=== PATIENT | male | born 1940 | race Caucasian/White ===

== ENCOUNTER 2023-03-28 18:20 | Emergency (ER) | payer OTHER, SELFPAY ==
[2023-03-28 18:28] VITALS: BP 152/73
[2023-03-28 20:07] VITALS: BMI 28.8
[2023-03-28 20:08] VITALS: BP 170/65
[2023-03-28 21:20] VITALS: BP 162/75
--- NOTE | 2023-03-28 21:21 | ED.GENMED ---
History of Present Illness
General
Chief Complaint: Head Injury
Source: patient
Exam Limitations: none
Time Seen by Provider: 03/28/23 20:37
Nursing documentation reviewed up to this point in time: agreed with
Travel History
Have you had any contact with someone who has COVID-19?: No
Do you have any symptoms of coronavirus? Fever > 100 degrees, chills, cough, shortness of breath, sore throat, loss of taste or smell, muscle aches, or headache?: No
History of Present Illness
History of Present Illness:
Patient states he lost his footing and fell. PMH Polio, weakness LLE. Hit left side of head on furniture. No LOC. Able to get self up. States he is taking plavix. Brought to ED by vijaya for eval.
Past History
Past History
ED Past Medical History: CAD, GERD, Hypercholesterolemia, NIDDM and Other (Polio)
ED Past Surgical History: Cardiac and Orthopedic
Social History
Personal:
Review of Systems
Review of Systems
Allergies reviewed?: Yes
All Other Systems: ROS reviewed and negative except as documented in HPI and ROS
Constitutional: Reports no symptoms
EENT: Reports no symptoms
Respiratory: Reports no symptoms
Cardiac: Reports no symptoms
ABD/GI: Reports no symptoms
: Reports no symptoms
Musculoskeletal: Reports no symptoms
Skin: Reports other (contusion left parietal scalp)
Neurological: Reports no symptoms
Psychiatric: Reports no symptoms
Phy Exam
General Physical Exam
General Presentation: well appearing and no apparent distress
General age: appears stated age
General Skin: warm and dry
General Habitus: normal
General Mental: alert
Neurological Exam
Neurological Exam: alert, oriented x3, no motor deficits, no sensory deficits and speech normal
[place] Coma Scale
Eye Opening: Spontaneous
Verbal Response: Oriented
Motor Response: Obeys Commands
GCS Total Score: 15
Musculoskeletal Exam
Musculoskeletal Exam: full ROM and neuro vasc intact
Skin Exam
Skin Exam: normal color, warm/dry and no rash
Psychiatric Exam
Psychiatric Exam: normal mood/affect
Course
Orders/Labs/Results
Orders:
Orders
03/28/23 18:31
CT Head W/o Iv Contrast Urgent
Comment:
Reason For Exam: head injury, on Plavix
Vital Signs
Initial and Last Documented VS:
Initial Vital Signs
Temp Pulse Resp BP Pulse Ox
98.4 F 61 16 152/73 98
03/28/23 18:28 03/28/23 18:28 03/28/23 18:28 03/28/23 18:28 03/28/23 18:28
Last Documented Vital Signs
Temp Pulse Resp BP Pulse Ox
98.4 F 65 18 162/75 100
03/28/23 18:28 03/28/23 21:20 03/28/23 21:20 03/28/23 21:20 03/28/23 21:20
*Radiology
Radiology exam reviewed: radiology read reviewed
*Pulse Oximetry
Patient hypoxic: no
*Critical Care Note
Total Time (30-74mins, 75-104mins- exclusive of procedures): Not Applicable
ED Attending Note
-
Portions of this chart may have been created with voice recognition software.� Occasional wrong word or��sound alike� substitutions may have occurred due to the inherent limitations of voice recognition software.
Discharge Plan
Departure
Patient Disposition: Home (Routine Discharge)
Date of Disposition: 03/28/23
Time of Disposition: 21:19
Patient with high blood pressure during this ER visit?: No
Condition: Good
Covid-19: Not Applicable
Discharge Problem:
Head injury
Instructions: Head Injury in Adults (DC), Contusion (DC)
Activity Restrictions/Additional Instructions:
Follow up with your family doctor on Friday.
Interventions
Interventions:
*Risk Screen - Suicide Last Done: 03/28/23 20:05
*General Assessment Last Done: 03/28/23 18:28
*Neglect/Abuse Screening Last Done: 03/28/23 20:05
ED- Fall Risk Assessment Last Done: 03/28/23 20:05
*ED COVID-19 Vaccine History Last Done: 03/28/23 18:28
ED- Neurological Assessment Last Done: 03/28/23 20:05
ED-Skin Assessment Last Done: 03/28/23 20:05
== END 2023-03-28 21:35 | disposition home or self-care (01) ==
LOC: EMR 18:20
PROVIDERS: EMERGENCY PHYSICIAN Emergency Medicine
DX: S09.90XA Unspecified injury of head, initial encounter (principal); W19.XXXA Unspecified fall, initial encounter; I25.10 Atherosclerotic heart disease of native coronary artery without angina pectoris; K21.9 Gastro-esophageal reflux disease without esophagitis; E11.9 Type 2 diabetes mellitus without complications; E78.00 Pure hypercholesterolemia, unspecified; Z79.02 Long term (current) use of antithrombotics/antiplatelets
CPT/HCPCS: 99284; 70450

== ENCOUNTER → 2023-04-01 14:37 | Outpatient (REF) | payer OTHER, SELFPAY | LOC: HWRAD 14:37 | PROVIDERS: ATTENDING PHYSICIAN Family Medicine | DX: M25.531 Pain in right wrist (principal); W19.XXXD Unspecified fall, subsequent encounter | CPT/HCPCS: 73110 ==

== ENCOUNTER 2023-04-07 23:26 | Inpatient (IN) | payer OTHER, SELFPAY ==
[2023-04-07] VITALS (7 sets, daily range): BP systolic 123–174; BP diastolic 69–86; BMI 28.7
[2023-04-07 18:40] LABS: % Basophils 0.6 % (0-2); % Eosinophils 1.7 % (0-6); % Immature Granulocytes 0.6 % (0-0.5); % Lymphocytes 20.2 % (20.5-51.1); % Monocytes 11.1 % (1.7-9.3); % Neutrophils 65.8 % (42.2-75.2); Absolute Eosinophils 0.1 10^3/uL (0-0.7); Absolute Lymphocytes 1.1 10^3/uL (1.2-3.4); Absolute Monocytes 0.6 10^3/uL (0.1-0.6); Absolute Neutrophils 3.6 10^3/uL (1.4-6.5); Hematocrit 40.8 % (39.0-52.0); Hemoglobin 14.5 g/dL (13.0-18.0); Mean Corp Hgb Conc. 35.5 g/dL (33.0-37.0); Mean Corpuscular Hgb 34.4 pg (27.0-31.0); Mean Corpuscular Volume 96.9 fL (80.0-94.0); Mean Platelet Volume 10.2 fL (7.4-10.4); Nucleated Red Blood Cells % 0 % (-); Platelet Count 158 10^3/uL (130-400); Red Blood Cell Count 4.21 10^6/uL (4.70-6.10); Red Cell Dist. Width 12.9 % (11.5-14.5); White Blood Cell Count 5.4 10^3/uL (4.8-10.8)
[2023-04-07 19:02] LABS: ALT (SGPT) 22 U/L (0-50); AST (SGOT) 34 U/L (17-59); Albumin 4.1 g/dl (3.5-5.0); Alkaline Phosphatase 96 U/L (38-126); Blood Urea Nitrogen 17 mg/dl (9-20); Calcium 9.6 mg/dl (8.4-10.2); Carbon Dioxide 26 mmol/L (22-30); Chloride 98 mmol/L (98-107); Estimated Creatinine Clearance 59 ml/min; Glucose 140 mg/dl (70-99); Potassium 4.6 mmol/L (3.5-5.1); Sodium 135 mmol/L (135-145); Total Bilirubin 0.8 mg/dl (0.2-1.3); Total Protein 7.4 g/dl (6.3-8.2); eGFR > 60.00
[2023-04-07 19:03] LABS: Troponin I < 0.012 ng/ml
--- NOTE | 2023-04-07 19:31 | ED.GENMED ---
History of Present Illness
General
Chief Complaint: Chest Pain
Source: patient
Exam Limitations: none
Time Seen by Provider: 04/07/23 19:11
Nursing documentation reviewed up to this point in time: agreed with
Travel History
Have you had any contact with someone who has COVID-19?: Unable to Answer
Do you have any symptoms of coronavirus? Fever > 100 degrees, chills, cough, shortness of breath, sore throat, loss of taste or smell, muscle aches, or headache?: Unable to Answer
History of Present Illness
History of Present Illness:
Patient with history of coronary artery disease, including multiple cardiac stent placement, with most recent one in 2020, presents to ED secondary to sudden onset of chest pain around 5:30 PM while he was at home. Chest pain described as
'burning', radiating up to his chest, without any alleviating or exacerbating factors. Patient states that his symptoms are similar to what he has experienced in the past, when he required stent placements. After onset of symptoms, patient
proceeded to take full-strength aspirin 325 mg, as well as 2 tablets of nitroglycerin, with minimal relief in symptoms. At that time 911 was dispatched. In route to the hospital, patient was given 2 additional tablet of nitroglycerin, with gradual
improvement in symptoms. At the time of evaluation ED, patient states that he is only experiencing intermittent 'chest discomfort'. Denies recent illness. Denies associated diaphoresis, nausea, or shortness of breath. Denies recent travel or
surgery. Denies leg pain or swelling. Denies back pain. Patient was seen by his primary water regulator and valve repairer in January 2023, as follow-up to chest pain presentation in ED in November 2022. At that time, patient also received stress echocardiogram as an
outpatient. Medication adjustments were made during his follow-up with his water regulator and valve repairer.
Past History
Past History
ED Past Medical History: CAD, GERD, Hypercholesterolemia, NIDDM and Other (Polio)
ED Past Surgical History: Cardiac and Orthopedic
Social History
Personal:
Review of Systems
Review of Systems
Allergies reviewed?: Yes
All Other Systems: ROS reviewed and negative except as documented in HPI and ROS
Constitutional: Reports no symptoms
EENT: Reports no symptoms
Respiratory: Reports no symptoms; Denies trouble breathing
Cardiac: Reports chest pain; Denies diaphoresis
ABD/GI: Reports no symptoms; Denies nausea
: Reports no symptoms
Musculoskeletal: Reports no symptoms
Skin: Reports no symptoms
Neurological: Reports no symptoms; Denies dizzy
Phy Exam
Physical Exam
Physical Exam:
Physical Exam
General: no apparent distress, not acutely ill. afebrile.
Head: nc/at. eomi
Neck: supple. no meningeal signs.
Heart: s1/s2 regular rate and rhythm, systolic ejection murmur. equal radial pulses.
Lungs: no acute respiratory distress. clear bilaterally
Abdomen: normal bowel sounds. not tender.
Neuro: alert and oriented. no focal neurological deficits
Skin: no rash
Psychiatric: well kept. interactive and cooperative
Extremities: no edema. no calf tenderness.
Scores
Heart Score for Chest Pain Patients
STEMI patient?: No
History: Moderately Suspicious
ECG: Normal
Age: >/= 65 years
Risk Factors: >/= 3 Risk Factors or History of CAD
Troponin: </= Normal Limit
Heart Score for Chest Pain Patients: 5
Heart Score Risk: 20.3% MACE over next 6 weeks
Course
Orders/Labs/Results
Orders:
Orders
04/07/23 18:20
EKG [Electrocardiogram (*1)] Urgent
Reason for Study: Chest Pain
EKG- Treatment ONCE
04/07/23 18:22
Cardiac Monitoring- Treatment ONCE
IV Insert/Care/Rem.- Treatment PRN
O2 Therapy [RESP] Urgent
Titrate/Wean O2 to maintain O2 sat greater than (%): 90
Special Instructions: Maintain sats >/=90%
Pulse Ox/spot Check [RESP] Urgent
Quantity: 1
Special Instructions: ON ROOM AIR
04/07/23 18:27
Comprehensive Metabolic Panel Urgent
Troponin I Urgent
04/07/23 18:28
Complete Blood Count/With Diff Urgent
04/07/23 21:33
Troponin I Urgent
04/07/23 23:16
Admit/Transfer Patient As Directed
Co-Sign Provider:
Level of Care: Inpatient admission
Assign to:: Telemetry
Physician / Group: sury
Diagnosis: nstemi
Reason for Telemetry: Arrhythmia
Date to Stop Telemetry: 04/10/23
Time to Stop Telemetry: 11:00
Reason for Hospitalization: nstemi
Expected length of stay greater than two midnights?: Yes
ELOS- Estimated Length of Stay in days: 2
I certify the patient meets the requirements for IP care: Yes
Code Status As Directed
Resuscitation Status: Full Code
04/08/23 00:13
Colchicine 0.6 mg PO BID PRN
Cyanocobalamin [Vitamin B-12] 1,000 mcg PO Q48H
04/08/23 00:13
CARDIOLOGY CONSULT Routine
Consulting Provider: Jesenia Rivera
Was physician already notified: Yes
Activity As Directed
Activity Level: As Tolerated
Vital Signs As Directed
Frequency: Per unit guidelines
DX Deep Vein Thrombosis Video Routine
04/08/23 00:31
Troponin I Q6H
04/08/23 06:00
Complete Blood Count/With Diff IN AM
Comprehensive Metabolic Panel IN AM
04/08/23 06:13
Troponin I Q6H
04/08/23 08:00
Clopidogrel Bisulfate [Plavix] 75 mg PO DAILY
Heparin 5,000 units SC Q12
ISOSORBIDE MONOnitrate ER [Imdur (Extended Release)] 60 mg PO BID
Metoprolol Xl [Toprol Xl] 50 mg PO BID
Multivitamin [Theragran] 1 tablet PO BID
Ramipril [Altace] 2.5 mg PO DAILY
ascorbic acid (vitamin C) [Vitamin C] 2,000 mg PO DAILY
coenzyme Q10 [Co Q-10] 100 mg PO DAILY
glucos sul [id number] [Glucosamine Chondroitin] 2 cap PO DAILY
psyllium husk [Metamucil] 1.2 grams PO BID
ranolazine 1,000 mg PO BID
04/08/23 12:13
Troponin I Q6H
04/08/23 14:00
Pantoprazole [Protonix] 40 mg PO DAILY@1400
04/08/23 Dinner
NPO
Allow oral meds: Yes
Allow clear liquids: Sips of Clears
04/08/23 22:00
Aspirin Low Dose EC [Aspir Low (Enteric Coated)] 81 mg PO HS
Finasteride [Proscar] 5 mg PO HS
Rosuvastatin Calcium [Crestor] 20 mg PO HS
Tamsulosin [Flomax] 0.8 mg PO HS
ascorbic acid (vitamin C) [Vitamin C] 1,000 mg PO HS
04/10/23 11:00
DC Protocol for Telemetry ONCE
Abnormal Lab Results
04/07/23 04/07/23
18:27 18:28
RBC 4.21 L 10^6/uL
(4.70-6.10)
MCV 96.9 H fL
(80.0-94.0)
MCH 34.4 H pg
(27.0-31.0)
Absolute Lymphs (auto) 1.1 L 10^3/uL
(1.2-3.4)
Immature Gran % 0.6 H %
(0-0.5)
Lymphocytes % 20.2 L %
(20.5-51.1)
Monocytes % 11.1 H %
(1.7-9.3)
Glucose 140 H mg/dl
(70-99)
04/07/23 18:28
04/07/23 18:27
Vital Signs
Initial and Last Documented VS:
Initial Vital Signs
Pulse Resp BP
66 22 174/86
04/07/23 18:23 04/07/23 18:23 04/07/23 18:23
Last Documented Vital Signs
Temp Pulse Resp BP Pulse Ox
97.9 F 56 16 148/71 97
04/07/23 18:32 04/08/23 00:00 04/08/23 00:00 04/08/23 00:00 04/08/23 00:00
MDM/Problems Addressed
MDM/Problems Addressed:
Patient remains chest pain-free during extended course of observation ED.
Repeat troponin: 0.019.
Discussed with Dr.Renee Rivera, cardiology. Recommends admission to hospitalist service. Does not recommend heparin protocol at this time.
*EKG
Interpreted by ED Provider?: Yes
EKG Intrepretation Date: 04/07/23
Heart Rate: 65
Rate: normal
Rhythm: sinus
[place]: normal axis
Interval: normal interval
QRS Pattern: normal QRS
*Critical Care Note
Total Time (30-74mins, 75-104mins- exclusive of procedures): Not Applicable
ED Attending Note
-
Portions of this chart may have been created with voice recognition software.� Occasional wrong word or��sound alike� substitutions may have occurred due to the inherent limitations of voice recognition software.
Discharge Plan
Departure
Patient Disposition: Admit
Date of Disposition: 04/07/23
Time of Disposition: 22:27
Admit to: Telemetry
Presentation/result/management discussed w/ accepting MD/DO: Hospitalist
Discharge Problem:
Chest pain
Interventions
Interventions:
*Risk Screen - Suicide Last Done: 04/07/23 18:33
*General Assessment Last Done: 04/07/23 18:33
*Neglect/Abuse Screening Last Done: 04/07/23 18:33
ED- Fall Risk Assessment Last Done: 04/07/23 18:34
*ED COVID-19 Vaccine History Last Done: 04/07/23 18:33
ED- Cardiac Assessment Last Done: 04/07/23 23:15
[2023-04-07 22:14] LABS: Troponin I 0.019 ng/ml
--- NOTE | 2023-04-07 23:20 | HPS.HSE ---
Family Physician
-
Family Physician: Dimple Myers
Chief Complaint
-
chest pain
History of Present Illness
82-year-old male with past medical history of CAD with stents, hypertension, gout, GERD, hypercholesteremia, polio with left foot paralysis, presenting with chest pain at 5:30 PM while at home. Pain described as burning radiating up to the chest
without alleviating or exacerbating factors. Symptoms similar to the past when he required stents. Afterwards patient took a full-strength aspirin and 2 tablets of nitroglycerin without much relief in symptoms. 911 was called. Patient was given
2 additional tablets of nitroglycerin with gradual improvement in symptoms. He denied diaphoresis, nausea or shortness of breath. Denied leg pain or swelling. Denies back pain.
Denies smoking history. Drinks alcohol occasionally.
Medical History
Past Medical History
Past Medical History: Reports Other ( CAD with stents, hypertension, gout, GERD, hypercholesteremia, polio with left foot paralysis)
Past Surgical History: Reports Cardiac (CABG )
Social History
Tobacco: Non-smoker
Alcohol: Occasional
Drug: None
Family History
Family History: Not pertinent
Allergies / Home Medications
Allergies reflects when Allergies were last updated in [employer].
Home Medications with original date entered in [employer]
Allergy/Medication List:
Allergies
Allergy/AdvReac Type Severity Reaction Status Date / Time
ticlopidine [From Ticlid] Allergy Rash Verified 03/28/23 18:31
Home Medications
ascorbic acid (vitamin C) 1,000 mg tablet (Vitamin C) 1,000 mg PO HS 04/07/23
ascorbic acid (vitamin C) 1,000 mg tablet (Vitamin C) 2,000 mg PO DAILY 04/07/23
aspirin 81 mg tablet,delayed release 81 mg PO HS 04/07/23
clopidogrel 75 mg tablet 75 mg PO DAILY 04/07/23
coenzyme Q10 100 mg capsule (Co Q-10) 100 mg PO DAILY 04/07/23
colchicine 0.6 mg tablet 0.6 mg PO BID PRN gout 04/07/23
cyanocobalamin (vitamin B-12) 1,000 mcg tablet (Vitamin B-12) 1,000 mcg PO Q48H 04/07/23
finasteride 5 mg tablet 5 mg PO HS 04/07/23
glucosamine sulf dipot chlr,msm,chond 550 mg-C 30 mg-brice 1 mg capsule (Glucosamine Chondroitin) 2 cap PO DAILY 04/07/23
isosorbide mononitrate 60 mg tablet,extended release 24 hr 60 mg PO BID 04/07/23
metoprolol succinate 50 mg tablet,extended release 24 hr 50 mg PO BID 04/07/23
multivitamin 1 tab PO BID 04/07/23
pantoprazole 40 mg tablet,delayed release 40 mg PO DAILY@1400 04/07/23
psyllium husk 0.4 gram capsule (Metamucil) 1.2 g PO BID 04/07/23
ramipril 2.5 mg capsule 2.5 mg PO DAILY 04/07/23
ranolazine 1,000 mg tablet,extended release,12 hr 1,000 mg PO BID 04/07/23
rosuvastatin 20 mg tablet 20 mg PO HS 04/07/23
tamsulosin 0.4 mg capsule 0.8 mg PO HS 04/07/23
Review of Systems
-
History Source: Patient
A 12 point ROS was completed and negative except as noted: Yes
Constitutional: Reports No Symptoms
EENT: Reports No Symptoms
Respiratory: Reports No Symptoms
Cardiac: Reports See HPI
Abdomen/GI: Reports No Symptoms
: Reports No Symptoms
Musculoskeletal: Reports No Symptoms
Skin: Reports No Symptoms
Neurological: Reports No Symptoms
Endocrine: Reports No Symptoms
Hematologic/Lymphatic: Reports No Symptoms
Psych: Reports No Symptoms
Physical Exam
Vital Signs
Vital Signs
Temp Pulse Resp BP Pulse Ox
97.9 F 57 13 152/72 96
04/07/23 18:32 04/07/23 23:00 04/07/23 23:00 04/07/23 23:00 04/07/23 23:00
Physical Exam
General: Well Developed, Well Nourished and No Apparent Distress
HEENT: NormoCephalic, Moist mucous membranes and Atraumatic
Respiratory: Clear
Cardiac: S1/S2 and Regular Rhythm; No Murmur or Rub
GI: Soft, Non Tender, Non Distended and Normal Bowel Sounds; No Organomegaly
Rectal: Deferred by Provider
Musculoskeletal: No Clubbing, No Cyanosis and No Edema
Skin: No Rash
Neuro: Nonfocal/grossly intact
Laboratory Results
-
04/07/23 18:28
04/07/23 18:27
Laboratory Results
Total Bilirubin 0.8 mg/dl (0.2-1.3) 04/07/23 18:27
AST 34 U/L (17-59) 04/07/23 18:27
ALT 22 U/L (0-50) 04/07/23 18:27
Alkaline Phosphatase 96 U/L (38-126) 04/07/23 18:27
Troponin I 0.019 ng/ml D 04/07/23 21:33
Data Reviewed
-
Lab Data: Labs Reviewed by me
Old Records: Reviewed
Impression/Plan
-
IMPRESSION:
PLAN:
# NSTEMI/unstable angina
# CAD status post CABG/prior stents most recently in 2020
-EKG shows normal sinus rhythm, no ischemic changes
-First troponin negative been 0.019
-Continue to trend troponins
-Continue aspirin, Plavix
-Continue isosorbide mononitrate
-Continue metoprolol
-Continue ranolazine
-Cardiology consulted
-N.p.o. for potential catheterization
Essential hypertension
-Continue ramipril
GERD
-Continue Protonix
Hypercholesterolemia
-Continue statin
Gout
-Continue colchicine
History of polio with left foot paralysis
BPH
-Continue finasteride
-Continue tamsulosin
Full code
DVT prophylaxis�heparin
N.p.o.
[2023-04-08] VITALS (15 sets, daily range): BP systolic 110–168; BP diastolic 59–89; PULSE 60–65; O2SAT 98; BMI 27.1
[2023-04-08 01:12] LABS: Troponin I 0.024 ng/ml
[2023-04-08] MEDS: FLOMAX 0.800000000000000044 MG PO ×2 (02:33→22:43)
[2023-04-08] MEDS: CRESTOR 20 MG PO ×2 (02:35→22:44)
[2023-04-08] MEDS: PROSCAR 5 MG PO ×2 (02:35→22:44)
[2023-04-08] MEDS: TOPROL XL 50 MG PO ×3 (02:36→20:22)
[2023-04-08] MEDS: RANEXA EXTENDED RELEASE 1000 MG PO ×3 (02:38→20:21)
[2023-04-08] MEDS: IMDUR (EXTENDED RELEASE) 60 MG PO ×3 (02:42→20:21)
[2023-04-08 06:18] LABS: % Basophils 0.8 % (0-2); % Eosinophils 1.6 % (0-6); % Immature Granulocytes 0.4 % (0-0.5); % Lymphocytes 17.5 % (20.5-51.1); % Monocytes 10.1 % (1.7-9.3); % Neutrophils 69.6 % (42.2-75.2); Absolute Eosinophils 0.1 10^3/uL (0-0.7); Absolute Lymphocytes 0.9 10^3/uL (1.2-3.4); Absolute Monocytes 0.5 10^3/uL (0.1-0.6); Absolute Neutrophils 3.6 10^3/uL (1.4-6.5); Hematocrit 36.5 % (39.0-52.0); Hemoglobin 12.9 g/dL (13.0-18.0); Mean Corp Hgb Conc. 35.3 g/dL (33.0-37.0); Mean Corpuscular Hgb 33.9 pg (27.0-31.0); Mean Corpuscular Volume 96.1 fL (80.0-94.0); Mean Platelet Volume 10.3 fL (7.4-10.4); Nucleated Red Blood Cells % 0 % (-); Platelet Count 151 10^3/uL (130-400); Red Cell Dist. Width 12.9 % (11.5-14.5); White Blood Cell Count 5.2 10^3/uL (4.8-10.8)
[2023-04-08 06:40] LABS: ALT (SGPT) 22 U/L (0-50); AST (SGOT) 33 U/L (17-59); Albumin 3.7 g/dl (3.5-5.0); Alkaline Phosphatase 101 U/L (38-126); Blood Urea Nitrogen 13 mg/dl (9-20); Carbon Dioxide 26 mmol/L (22-30); Chloride 104 mmol/L (98-107); Estimated Creatinine Clearance 67 ml/min; Glucose 118 mg/dl (70-99); Potassium 4.2 mmol/L (3.5-5.1); Sodium 133 mmol/L (135-145); Total Protein 6.6 g/dl (6.3-8.2); eGFR > 60.00
--- NOTE | 2023-04-08 06:44 | PTCARENOTE ---
Received pt from ED. AOx3. Pt transferred from stretcher to bed via nursing staff. Pt w/ left leg weakness from hx of polio. Oriented to unit. Report given to dayshift nurse.
[2023-04-08 06:50] LABS: Troponin I 0.016 ng/ml
--- NOTE | 2023-04-08 08:53 | CON.CAR ---
Addendum entered and electronically signed by Jimmie Rawls MD 04/08/23 11:57:
I saw and examined the patient.
The Metal Solderer's note was reviewed and I agree with the note.
Comment: Briefly, 82-year-old man past medical history of MV CAD s/p CABG () with subsequent PCI x10 at both [facility] as well [place]
He presents with chest discomfort which is somewhat atypical by his description but he associates as his chronic angina, has remained chest pain free today
Serial troponins here are within normal limits
EKG is not overtly ischemic
Recent stress testing and echo reviewed and case discussed with patient's primary senior ruby developer - plan is for up titration of his medical therapy
Will add amlodipine as additional anti-anginal and monitor for recurrence of symptoms
Continue aspirin/Plavix/high intensity statin
Stable cardiac status, we will arrange for outpatient follow-up
Original Note:
Consultation
Consultation Request
Date/Time Consultation Performed: 04/08/23
Requesting Provider: Dr. Cabrera
Performing Provider: Magdalean Hartman PA-C for Dr. Rawls
Reason for Consultation: CP
Medical History
-
Chief Complaint: CP
History of Present Illness:
Patient is an 82-year-old male with past medical history of CAD status post CABG in 1989 at [facility] with PRITCHARD to LAD and SVG to OM. Since then he has had multiple cardiac catheterizations resulting in stenting between [facility] and
[facility] with Dr. Smith. His most recent cardiac catheterization was 02/2020 resulting in stenting of his [place] LAD. He reports at 5 PM yesterday he was sitting in his chair doing sudoku and developed feeling of a heat flash from his
abdomen up into his chest, which is typically is 'tell' for angina. After a few minutes the pain was still present and he took 1 sublingual nitro. After 15 minutes he had no change in his pain and took aspirin and an additional nitro. The pain
persisted and he called 911. EMS gave him a third nitro and more aspirin. In the ER, he received a fourth sublingual nitro with some reduction in his discomfort. He is presently pain-free. He believes the pain lasted in total approximately 2
hours or so. He has no radiation of pain. He has not had any chest discomfort with completing his normal activities around the house recently. He has not required sublingual nitro at home recently until yesterday. EKG sinus bradycardia without
acute ST abnormalities. Troponin 0.019, 0.024, 0.016. Last ischemic evaluation was a stress test 11/2022 with medium area of mildly decreased uptake that is reversible and apical anterior wall and apex, small area of mildly decreased uptake that
is fixed in basal and mid inferolateral wall, EF 65%. Last echocardiogram 11/2022 with EF normal, mild MR, mild , mild TR. of note, patient tells me he has history of polio, and more recently his leg has been giving him significant issues due to
weakness. He had a fall 10 days ago where he hit his head resulting in an ER visit. He also fell on Friday. Reports this is a result of him tripping, and denies any preceding dizziness or lightheadedness.
PMH:
CAD
Status post CABG 1989 at [facility] with PRITCHARD to LAD and SVG to OM
Status post LAD stent in 2008 [facility]
Status post LAD stent 04/2013 [facility]
Status post SVG�OM stent 04/2016 [facility]
Status post laser atherectomy of proximal LAD with PCI x 2 06/2017 [facility]
Status post LAD stent 02/2020 [facility]
History of polio at age 2, with postpolio syndrome LLE
History of falls
DM2, diet controlled
Gout
GERD
BPH
Past Medical History
Past Medical History: Other (in HPI)
Social History
Tobacco: Non-Smoker
Alcohol: Occasional
Personal:
Living: With Family
Employment: Retired
Family History
Family History: CAD
Allergies / Home Medications
Allergy/AdvReac Type Severity Reaction Status Date / Time
ticlopidine [From Ticlid] Allergy Rash Verified 03/28/23 18:31
Medication Instructions Recorded Confirmed Type
ascorbic acid (vitamin C) 1,000 mg 1,000 mg PO HS 04/07/23 04/07/23 History
tablet (Vitamin C)
ascorbic acid (vitamin C) 1,000 mg 2,000 mg PO DAILY 04/07/23 04/07/23 History
tablet (Vitamin C)
aspirin 81 mg tablet,delayed 81 mg PO HS 04/07/23 04/07/23 History
release
clopidogrel 75 mg tablet 75 mg PO DAILY 04/07/23 04/07/23 History
coenzyme Q10 100 mg capsule (Co 100 mg PO DAILY 04/07/23 04/07/23 History
Q-10)
colchicine 0.6 mg tablet 0.6 mg PO BID PRN gout 04/07/23 04/07/23 History
cyanocobalamin (vitamin B-12) 1,000 mcg PO Q48H 04/07/23 04/07/23 History
1,000 mcg tablet (Vitamin B-12)
finasteride 5 mg tablet 5 mg PO HS 04/07/23 04/07/23 History
glucosamine sulf dipot 2 cap PO DAILY 04/07/23 04/07/23 History
chlr,msm,chond 550 mg-C 30 mg-brice
1 mg capsule (Glucosamine
Chondroitin)
isosorbide mononitrate 60 mg 60 mg PO BID 04/07/23 04/07/23 History
tablet,extended release 24 hr
metoprolol succinate 50 mg 50 mg PO BID 04/07/23 04/07/23 History
tablet,extended release 24 hr
multivitamin 1 tab PO BID 04/07/23 04/07/23 History
pantoprazole 40 mg tablet,delayed 40 mg PO DAILY@1400 04/07/23 04/07/23 History
release
psyllium husk 0.4 gram capsule 1.2 g PO BID 04/07/23 04/07/23 History
(Metamucil)
ramipril 2.5 mg capsule 2.5 mg PO DAILY 04/07/23 04/07/23 History
ranolazine 1,000 mg 1,000 mg PO BID 04/07/23 04/07/23 History
tablet,extended release,12 hr
rosuvastatin 20 mg tablet 20 mg PO HS 04/07/23 04/07/23 History
tamsulosin 0.4 mg capsule 0.8 mg PO HS 04/07/23 04/07/23 History
Review of Systems
-
History Source: Patient and Family
All other systems: Negative unless noted
Physical Exam
Vital Signs
Temp Pulse Resp BP Pulse Ox
97.8 F 58 18 126/89 99
04/08/23 06:40 04/08/23 05:30 04/08/23 06:40 04/08/23 05:00 04/08/23 06:40
Lab Results
04/08/23 06:06
04/08/23 06:06
Troponin I 0.016 ng/ml D 04/08/23 06:06
Physical Exam
General: No Apparent Distress and Comfortable
HEENT: Normocephalic, Anicteric and Moist Mucous Membranes
Respiratory: Clear and Non Labored Respirations
Cardiac: S1/S2 and Regular Rhythm
GI: Soft, Non Tender, Non Distended and Normal Bowel Sounds
Musculoskeletal: No Clubbing, No Cyanosis and No Edema
Skin: Warm and Dry
Neuro: AO x 3
Impression / Plan
-
Primary Roller Skates Assembler: Dr. Shaw
Assessment:
Presentation with CP
Detectable but normal serial troponins
CAD
Status post CABG 1989 at [facility] with PRITCHARD to LAD and SVG to OM
Status post LAD stent in 2008 [facility]
Status post LAD stent 04/2013 [facility]
Status post SVG�OM stent 04/2016 [facility]
Status post laser atherectomy of proximal LAD with PCI x 2 06/2017 [facility]
Status post LAD stent 02/2020 [facility]
History of polio at age 2, with postpolio syndrome LLE
History of falls, with 2 recently 03/28/23, 04/05/23
DM2, diet controlled
Gout
GERD
BPH
ECHO 11/2023: EF 60 to 65%, mild concentric LVH, mild MR, mild with peak/mean gradients 31/14 mmHg, mild AI, mild TR, PAP 41 mmHg
Adenosine myoview stress test 11/2023: Medium area of mildly decreased uptake that is reversible and apical anterior wall and apex, small area of mildly decreased uptake that is fixed in basal and mid inferior lateral wall, EF 65%
Plan:
-Patient presents with episode of chest discomfort which he describes as similar to his prior anginal equivalent. History of multiple prior stents, most recently 2020. EKG sinus bradycardia without acute ST abnormalities. Serial troponins
detectable but normal, peaking at 0.024. Patient presently chest pain-free.
-Unclear if chest discomfort cardiac. would attempt to medically manage at this time.
-Remains on regimen of aspirin, Plavix, Toprol 50 mg twice daily, Imdur 60 mg twice daily, Ranexa 1000 mg twice daily, ramipril 2.5 mg daily. Blood pressure stable. Heart rates on low side, so cannot further uptitrate beta-kim. Would plan for
addition of Norvasc.
-Will have patient ambulate in hallway. For PT evaluation as with recent falls related to his postpolio syndrome/left lower extremity weakness
-for possible DC to home later today
-will arrange OP cardiac follow up
-Discussed with patient and at bedside. Discussed with nursing. Discussed with hospitalist. Discussed with patient's primary senior ruby developer.
Data Reviewed
-
EKG: Tracing Personally Visualized and interpreted
Medical Tests (Nuc Med, Echo etc): Report Reviewed by me
Labs: Labs Reviewed by me
Old Records: Reviewed
[2023-04-08] MEDS: PLAVIX 75 MG PO (08:54)
[2023-04-08] MEDS: ALTACE 2.5 MG PO (08:54)
[2023-04-08] MEDS: HEPARIN 5000 UNITS SC ×2 (08:56→20:21)
--- NOTE | 2023-04-08 09:23 | W.PN.HOSP.TC ---
Today's Communication/Plan
-
PT OT
See if pt has symptoms
Assessment / Plan
Assessment / Plan
82-year-old male with history of coronary disease with stents came to the hospital with a flushed feeling with chest pain. Patient states that every time he had a heart problem this is the way he felt. He took 2 tablets of nitroglycerin without
much relief and got 2 more in route to the hospital.
Pain went away after 4 hours. No pain this morning.
On examination awake alert oriented x 3 not in any acute distress
Cardiovascular system S1-S2 appreciated
Chest clear to auscultation
Abdomen soft and nontender
FACTORY CLERK-left foot drop, left leg paralysis-postpolio
Otherwise nonfocal
# Chest pain
4 hours of pain yet troponins are negative.
Pain completely went away
History of coronary disease CABG and stents in the heart most recent 03/01/2020
EKG sinus rhythm no ischemia
Continue aspirin, Plavix, Imdur, metoprolol, ramipril, Ranexa, statin
Cardiology planning to add low-dose of Norvasc
# Hypertension-continue metoprolol, ramipril
# GERD-continue PPI
# Hyperlipidemia-continue statin
# Gout-continue colchicine
# Prostate disease-continue finasteride and Flomax
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
He has been following lately with 4 falls in the past year. Patient states that these falls are completely mechanical he trips on his foot.
I will refer him to physiatry and outpatient PT for strength and gait training
# DVT prophylaxis-currently heparin-changed to subcutaneous Lovenox
# Full code
Discussed with nursing
Discussed with at bedside
Discussed with cardiology PA
Reached out to physiatry. Phone number of office at [facility] given. Will refer patient to outpatient physiatry, PT and OT.
time 51 min
Anticipated Discharge: Within 24 hours
Subjective/Interval History
-
Date of Service: April 08, 2023
Objective Data
-
Labs:
Laboratory Results
04/08/23
06:06
WBC 5.2
Hgb 12.9 L
Hct 36.5 L
Plt Count 151
Sodium 133 L
Potassium 4.2
Chloride 104
Carbon Dioxide 26
BUN 13
Creatinine 0.7
Glucose 118 H
Calcium 9.0
Total Bilirubin 1.0
AST 33
ALT 22
Alkaline Phosphatase 101
Vital Signs:
Vital Signs
Temp Pulse Resp BP Pulse Ox
97.8 F 59 18 151/72 99
04/08/23 06:40 04/08/23 08:45 04/08/23 06:40 04/08/23 06:44 04/08/23 06:40
--- NOTE | 2023-04-08 09:51 | PTCARENOTE ---
Assumed care of pt from night RN. Pt received awake and alert, Ox3. VSS, CM shows NSR 60's, POX 99% Pt denies any pain or discomfort at this time. Trops neg thus far. Will continue to monitor closely.
[2023-04-08] MEDS: NORVASC 2.5 MG PO (10:41)
[2023-04-08] MEDS: THERAGRAN 1 TABLET PO ×2 (10:42→20:22)
[2023-04-08] MEDS: VITAMIN C 2000 MG PO (10:43)
[2023-04-08] MEDS: VITAMIN B-12 1000 MCG PO (10:43)
[2023-04-08] MEDS: PROTONIX 40 MG PO (14:32)
--- NOTE | 2023-04-08 14:34 | CM ---
spoke to pt in room, he is prev indep, lives with his in 2 story home with a first floor set up and a ramp to enter. he denies any dc planning needs. Plan is for dc to home when medically stable.
[2023-04-08] MEDS: ASPIR LOW (ENTERIC COATED) 81 MG PO (22:43)
[2023-04-08] MEDS: VITAMIN C 1000 MG PO (22:44)
--- NOTE | 2023-04-08 23:00 | PTCARENOTE ---
Pt rec'd at change of shift awake,alert no complaints. family at bedside. tele monitor not functioning, pt switched to hard wire.
Sinus noted. Pt refusing Metamucil, pt prefers pills he takes at home. bowels regular at present. staying with pt overnight. call pérez within reach. pt utilizing urinal at bedside.
[2023-04-09 03:25] VITALS: BP 96/52
[2023-04-09 07:53] VITALS: BP 125/57
--- NOTE | 2023-04-09 09:28 | W.PN.HOSP.TC ---
Addendum entered and electronically signed by Dennise Cabrera MD 04/09/23 18:12:
NSTEMI ruled out
Original Note:
Today's Communication/Plan
-
Discharge
Assessment / Plan
Assessment / Plan
82-year-old male with history of coronary disease with stents came to the hospital with a flushed feeling with chest pain. Patient states that every time he had a heart problem this is the way he felt. He took 2 tablets of nitroglycerin without
much relief and got 2 more in route to the hospital.
No pain
On examination awake alert oriented x 3 not in any acute distress
Cardiovascular system S1-S2 appreciated
Chest clear to auscultation
Abdomen soft and nontender
PLUMBING CONTRACTOR-left foot drop, left leg paralysis-postpolio
Otherwise nonfocal
# Chest pain
4 hours of pain yet troponins are negative.
Pain completely went away
History of coronary disease CABG and stents in the heart most recent 03/01/2020
EKG sinus rhythm no ischemia
Continue aspirin, Plavix, Imdur, metoprolol, ramipril, Ranexa, statin
Cardiology added low-dose of Norvasc
# Hypertension-continue metoprolol, ramipril
# GERD-continue PPI
# Hyperlipidemia-continue statin
# Gout-continue colchicine
# Prostate disease-continue finasteride and Flomax
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
He has been following lately with 4 falls in the past year. Patient states that these falls are completely mechanical he trips on his foot.
I will refer him to physiatry and outpatient PT for strength and gait training
# DVT prophylaxis-Subcutaneous Heparin
# Full code
Discussed with nursing
Discussed with at bedside
Discussed with cardiology PA
Discharge time 31 min
Anticipated Discharge: Today
Subjective/Interval History
-
Date of Service: April 09, 2023
Objective Data
-
Vital Signs:
Vital Signs
Temp Pulse Resp BP Pulse Ox
97.6 F 61 18 96/52 95
04/09/23 07:51 04/09/23 07:51 04/09/23 07:51 04/09/23 03:25 04/09/23 07:51
I&O
04/08/23 04/09/23 04/10/23
06:59 06:59 06:59
Intake Total 480 / 480
Output Total 150 / 150
Balance 330 / 330
--- NOTE | 2023-04-09 09:30 | W.DS.TRANS ---
Addendum entered and electronically signed by Dennise Cabrera MD 04/09/23 17:44:
Dictation- [id number]
Original Note:
DC Summary - Escrow Officer
-
Discharge Instructions:
Discharge Diagnosis/Procedures Chest pain, hypertension, GERD, hyperlipidemia,
gout, prostate disease, postpolio paralysis
left leg
Diet 2 Gram Sodium,Low Cholesterol
Activity As tolerated
Driving Restrictions As prior to admission
Other Services PT
Instructions:
Stand-Alone Forms:
Changes to Home Medications: Yes
Discharge Medications:
DC Medications w/original date entered in [facility] [facility]
ascorbic acid (vitamin C) 1,000 mg tablet (Vitamin C) 1,000 mg PO HS Supplement 04/07/23
aspirin 81 mg tablet,delayed release 81 mg PO HS Blood Clot Prevention/Tx 04/07/23
clopidogrel 75 mg tablet 75 mg PO DAILY Blood Clot Prevention/Tx 04/07/23
coenzyme Q10 100 mg capsule (Co Q-10) 100 mg PO DAILY Supplement 04/07/23
colchicine 0.6 mg tablet 0.6 mg PO BID PRN gout 04/07/23
cyanocobalamin (vitamin B-12) 1,000 mcg tablet (Vitamin B-12) 1,000 mcg PO Q48H Supplement 04/07/23
finasteride 5 mg tablet 5 mg PO HS Urinary Issue 04/07/23
glucosamine sulf dipot chlr,msm,chond 550 mg-C 30 mg-brice 1 mg capsule (Glucosamine Chondroitin) 2 cap PO DAILY Supplement 04/07/23
isosorbide mononitrate 60 mg tablet,extended release 24 hr 60 mg PO BID Heart Disease/Condition 04/07/23
metoprolol succinate 50 mg tablet,extended release 24 hr 50 mg PO BID Blood Pressure 04/07/23
multivitamin 1 tab PO BID Supplement 04/07/23
pantoprazole 40 mg tablet,delayed release 40 mg PO DAILY@1400 Gastrointestinal Issue 04/07/23
psyllium husk 0.4 gram capsule (Metamucil) 1.2 g PO BID Constipation 04/07/23
ramipril 2.5 mg capsule 2.5 mg PO DAILY Blood Pressure 04/07/23
ranolazine 1,000 mg tablet,extended release,12 hr 1,000 mg PO BID Heart Failure 04/07/23
rosuvastatin 20 mg tablet 20 mg PO HS High Cholesterol 04/07/23
tamsulosin 0.4 mg capsule 0.8 mg PO HS Urinary Issue 04/07/23
amlodipine 2.5 mg tablet 2.5 mg PO DAILY Heart disease/condition #30 tabs 04/09/23
Home Medication Changes
new-Norvasc
Pending Results: No
--- NOTE | 2023-04-09 09:43 | W.PN.CARDCBS ---
Addendum entered and electronically signed by Jose J Chan DO 04/09/23 10:28:
I saw and examined the patient.
The Table Games Dealer's note was reviewed and I agree with the note.
Comment:
Plan:
No recurrent cp.
Norvasc added and bp stable.
Monitor bps as outpt.
Discussed with nursing and with family at bedside.
Outpt cardiac follow up arranged.
Original Note:
Today's Communication / Plan
-
no further CP
low dose norvasc added 04/08
follow BPs as OP
OP cardiac follow up arranged
Impression / Plan
-
Primary Cross Tie Maker: Dr. Shaw
Assessment:
Presentation with CP
Detectable but normal serial troponins
CAD
Status post CABG 1989 at [facility] with PRITCHARD to LAD and SVG to OM
Status post LAD stent in 2008 [facility]
Status post LAD stent 04/2013 [facility]
Status post SVG�OM stent 04/2016 [facility]
Status post laser atherectomy of proximal LAD with PCI x 2 06/2017 [facility]
Status post LAD stent 02/2020 [facility]
History of polio at age 2, with postpolio syndrome LLE
History of falls, with 2 recently 03/28/23, 04/05/23
DM2, diet controlled
Gout
GERD
BPH
ECHO 11/2023: EF 60 to 65%, mild concentric LVH, mild MR, mild with peak/mean gradients 31/14 mmHg, mild AI, mild TR, PAP 41 mmHg
Adenosine myoview stress test 11/2023: Medium area of mildly decreased uptake that is reversible and apical anterior wall and apex, small area of mildly decreased uptake that is fixed in basal and mid inferior lateral wall, EF 65%
Plan:
-Patient without recurrence of chest discomfort overnight.
-Serial troponins detectable but normal, peaking at 0.024. History of prior stents most recently in 2021
-Norvasc 2.5 mg daily added to outpatient regimen of aspirin, Plavix, Toprol 50 mg twice daily, Imdur 60 mg twice daily, Ranexa 1000 mg twice daily, ramipril 2.5 mg daily. Blood pressure is low but stable overnight, however improved this morning.
He has been ambulatory without dizziness/lightheadedness.
-Discussed with patient to take his blood pressure several times a week. If he is noticing low blood pressures or dizziness, to call the office and hold his ramipril. Will have him take his Norvasc at noon as an outpatient
-Continue PT/OT. For outpatient physiatry.
-Okay for discharge to home today from cardiac standpoint. Outpatient cardiac follow-up arranged
-Discussed with hospitalist. Discussed with patient and at bedside
Progress Note - Cross Tie Maker
Subjective
Date of Service: April 09, 2023
Denies chest discomfort. Denies dizziness or lightheadedness.
Objective
Labs:
04/08/23 06:06
04/08/23 06:06
Labs
Hgb 12.9 g/dL (13.0-18.0) L 04/08/23 06:06
Hct 36.5 % (39.0-52.0) L 04/08/23 06:06
Plt Count 151 10^3/uL (130-400) 04/08/23 06:06
Sodium 133 mmol/L (135-145) L 04/08/23 06:06
Potassium 4.2 mmol/L (3.5-5.1) 04/08/23 06:06
BUN 13 mg/dl (9-20) 04/08/23 06:06
Creatinine 0.7 mg/dL (0.7-1.3) 04/08/23 06:06
Glucose 118 mg/dl (70-99) H 04/08/23 06:06
Troponins
04/07/23 04/07/23 04/08/23
18:27 21:33 00:31
Troponin I < 0.012 0.019 D 0.024 D
04/08/23 04/08/23
06:06 12:13
Troponin I 0.016 D Cancelled
Vital Signs and I&O:
Vital Signs
Temp Pulse Resp BP Pulse Ox
97.6 F 61 18 96/52 95
04/09/23 07:51 04/09/23 07:51 04/09/23 07:51 04/09/23 03:25 04/09/23 07:51
Vital Signs
Temp Pulse Resp BP Pulse Ox
97.6 F 61 18 96/52 95
04/09/23 07:51 04/09/23 07:51 04/09/23 07:51 04/09/23 03:25 04/09/23 07:51
Intake & Output
04/07/23 04/08/23 04/09/23 04/10/23
07:59 07:59 07:59 07:59
Intake Total 480 / 480
Output Total 150 / 150
Balance 330 / 330
Physical Exam
Physical Exam
GEN: No distress, awake, alert, oriented x3
HEENT: supple, anicteric, mmm, eomi
LUNGS: CTA B/L, no wheezes/rales
CV: Reg, S1/S2, 1/6 syst LSB
ABD: soft, BS+, NT/ND
EXT: No cyanosis, clubbing, edema
NEURO: Gross non-focal
SKIN: Warm, pink, dry. No rash
[2023-04-09] MEDS: ALTACE 2.5 MG PO (09:57)
[2023-04-09] MEDS: VITAMIN C 2000 MG PO (09:57)
[2023-04-09] MEDS: RANEXA EXTENDED RELEASE 1000 MG PO (09:57)
[2023-04-09] MEDS: THERAGRAN 1 TABLET PO (09:57)
[2023-04-09] MEDS: TOPROL XL 50 MG PO (09:58)
[2023-04-09] MEDS: PLAVIX 75 MG PO (09:58)
[2023-04-09] MEDS: IMDUR (EXTENDED RELEASE) 60 MG PO (09:58)
[2023-04-09] MEDS: HEPARIN 5000 UNITS SC (09:59)
[2023-04-09 11:11] VITALS: BP 118/66
--- NOTE | 2023-04-09 11:32 | PN.CDI ---
CDI
- -
CDI:
Physician Documentation Request
Admit Date: 04/07/23 23:26
Dear Doctor Deborah,
Please review the following and provide your response in the progress notes.
Clinical Indicators:
The diagnosis of NSTEMI was documented on 04/07 H&P but is not consistently noted in subsequent documentation.
- 04/07 H&P 'NSTEMI/unstable angina'
- 04/07 Cardiology 'Detectable but normal serial troponins'
- 'Unclear if chest discomfort cardiac'
- 04/09 PN 'Chest pain'
Please clarify the following:
____ - NSTEMI was present on admission and is now resolved.
____ - NSTEMI was present on admission and is still being monitored, evaluated or treated
____ - NSTEMI was ruled out
____ - NSTEMI is still a likely, suspected, probable diagnosis
____ - Other
Use of terms such as suspected, likely, concern for, or probable (associated with a specific diagnosis that is being evaluated, monitored, or treated as if it exists) are acceptable and can be coded in the inpatient setting, when documented at the
time of discharge.
Thank you,
Silvia Parish RN
CDI Specialist
Please use your independent medical judgment in providing your response.
[2023-04-09 12:36] VITALS: BP 117/60
[2023-04-09] MEDS: PROTONIX 40 MG PO (12:38)
[2023-04-09] MEDS: NORVASC 2.5 MG PO (13:00)
[2023-04-09] MEDS: NORVASC PO (13:11)
--- NOTE | 2023-04-09 13:56 | CM ---
CM following for DC planning needs.
Met w/ patient, spouse at bedside.
Pt. is hopeful for DC soon. There are no identified DC needs.
Plan is for home once medically stable.
Pt. will need RW from PT prior to DC. Requested RX from MD.
[2023-04-09 14:22] VITALS: BP 112/63
[2023-04-09 14:53] VITALS: BP 112/65; PULSE 56; O2SAT 98
--- NOTE | 2023-04-09 17:02 | PTCARENOTE ---
Pt tolerated norvasc. Pt seen by JIM Galarza and . Telemetry and IV device removed. Discharge instructions reviewed with pt regarding medications and their possible side effects, activity guidelines, plan for physiatry consult,
reporting cares and concerns and follow up appt's. Very good understanding verbalized. Pt escorted out via wheelchair and discharged to home with a new walker.
== END 2023-04-09 17:05 | disposition home or self-care (01) | DRG 303 ==
LOC: IVU 23:26
PROVIDERS: Emergency Medicine; ADMITTING PHYSICIAN Hospitalist; ATTENDING PHYSICIAN Hospitalist; EMERGENCY PHYSICIAN Emergency Medicine; FAMILY PHYSICIAN Family Medicine; OTHER PHYSICIAN Internal Medicine Cardiovascular Disease
DX: I25.110 Atherosclerotic heart disease of native coronary artery with unstable angina pectoris (principal); I10 Essential (primary) hypertension; M10.9 Gout, unspecified; N40.0 Benign prostatic hyperplasia without lower urinary tract symptoms; G83.14 Monoplegia of lower limb affecting left nondominant side; R29.6 Repeated falls; E11.9 Type 2 diabetes mellitus without complications; G14 Postpolio syndrome; K21.9 Gastro-esophageal reflux disease without esophagitis; E78.00 Pure hypercholesterolemia, unspecified; Z86.12 Personal history of poliomyelitis; Z95.1 Presence of aortocoronary bypass graft; Z88.8 Allergy status to other drugs, medicaments and biological substances; Z79.82 Long term (current) use of aspirin; Z79.02 Long term (current) use of antithrombotics/antiplatelets; Z95.5 Presence of coronary angioplasty implant and graft; Z91.81 History of falling
CPT/HCPCS: 80053; 84484; 85025; 93005; 97116; 97163; 97166; 97530; 99285

== ENCOUNTER 2023-06-18 09:05 | Emergency (ER) | payer OTHER, SELFPAY ==
[2023-06-18] VITALS (10 sets, daily range): BP systolic 113–157; BP diastolic 55–73; BMI 28.8
--- NOTE | 2023-06-18 09:07 | ED.GENMED ---
Addendum entered and electronically signed by LUKE Henry 06/18/23 15:51:
Patient was seen by cardiology and told cardiology that he no longer felt this pain was related to his heart he tells me that EMS noted that his abdomen was distended. On abdominal exam he is only very minimally intermittently tender in the left
side of his abdomen will check CAT scan however not concerning exam patient did not give abdominal complaints initially as documented previously. Patient was discussed again seen by cardiology who did not feel he needed to be admitted from cardiac
standpoint they were going to increase his Imdur to 120 mg twice daily and is going to see his mold blower Dr. Shaw in the office next week.
Original Note:
History of Present Illness
General
Chief Complaint: Chest Pain
Source: patient
Exam Limitations: none
Time Seen by Provider: 06/18/23 09:07
History of Present Illness
History of Present Illness:
Patient is a 82-year-old male with past medical history significant for cardiovascular disease, bypass in 1989 stents x 10 who reports prior to arrival he was in the shower and developed anterior chest discomfort that his entire chest he reports it
was about 8 out of 10. He had to sit down. He was nauseous and sweaty with this pain. He felt mildly short of breath. He did take 1 nitroglycerin of his own. EMS was called he received 2 other additional nitroglycerin. He took a total of 325
aspirin this a.m. He reports pain is now down to 2 around a 2 out of 10. He does feel similar however to when he had his [facility] episodes in the past
Past History
Past History
ED Past Medical History: CAD, GERD, Hypercholesterolemia, NIDDM and Other (Polio)
ED Past Surgical History: Cardiac and Orthopedic
Social History
Personal:
Review of Systems
Review of Systems
All Other Systems: ROS reviewed and negative except as documented in HPI and ROS
Constitutional: Reports no symptoms; Denies fever, fatigue or chills
Respiratory: Reports trouble breathing (pt had slight SOB w/ cp and nausea )
Cardiac: Reports chest pain; Denies diaphoresis, palpitations or syncope
ABD/GI: Reports no symptoms
: Reports no symptoms
Musculoskeletal: Reports no symptoms
Hematologic/Lymphatic: Reports no symptoms
Psychiatric: Reports no symptoms
Phy Exam
General Physical Exam
General Presentation: no apparent distress
General age: appears stated age
General Skin: warm and dry
General Habitus: elderly
General Mental: alert
General Hydration: appears well hydrated
Cardiovascular Exam
Cardiovascular Exam: regular rate/rhythm, no murmur and normal peripheral pulses
Pulmonary Exam
Pulmonary Exam: lungs clear and no respiratory distress
Neurological Exam
Neurological Exam: alert and oriented x3
Musculoskeletal Exam
Musculoskeletal Exam: full ROM
Skin Exam
Skin Exam: normal color and warm/dry
Psychiatric Exam
Psychiatric Exam: normal mood/affect
Scores
Heart Score for Chest Pain Patients
STEMI patient?: Not applicable
Course
Orders/Labs/Results
Orders:
Orders
06/18/23 09:07
ECG [Electrocardiogram (*1)] Urgent
Reason for Study: Chest Pain
EKG- Treatment ONCE
06/18/23 09:17
Complete Blood Count/With Diff Urgent
Comprehensive Metabolic Panel Urgent
Troponin I Urgent
06/18/23 09:33
0.9% Sodium Chloride 500 ml [Nss] 500 ml IV BOLUS
06/18/23 09:34
0.9% Sodium Chloride 500 ml [Nss] 500 ml IV BOLUS
06/18/23 10:23
Nitroglycerin Ointment [Nitro-Bid] 1 inch TOPICAL NOW STA
06/18/23 11:48
Chest [CR Chest - 2 Views ] Urgent
Comment:
Reason For Exam: cp
06/18/23 12:09
Electrocardiogram (*1) Stat
Reason for Study: Other
Other Reason for Exam: chest pain
EKG- Treatment ONCE
06/18/23 12:30
Troponin I Urgent
Abnormal Lab Results
06/18/23
09:17
WBC 4.1 L 10^3/uL
(4.8-10.8)
RBC 4.06 L 10^6/uL
(4.70-6.10)
MCV 98.8 H fL
(80.0-94.0)
MCH 35.0 H pg
(27.0-31.0)
Absolute Lymphs (auto) 0.9 L 10^3/uL
(1.2-3.4)
Immature Gran % 0.7 H %
(0-0.5)
Monocytes % 10.8 H %
(1.7-9.3)
Glucose 147 H mg/dl
(70-99)
06/18/23 09:17
06/18/23 09:17
Vital Signs
Initial and Last Documented VS:
Initial Vital Signs
Temp Pulse Resp BP Pulse Ox
97.4 F 68 16 113/70 97
06/18/23 09:08 06/18/23 09:08 06/18/23 09:08 06/18/23 09:08 06/18/23 09:08
Last Documented Vital Signs
Temp Pulse Resp BP Pulse Ox
97.4 F 62 15 132/63 96
06/18/23 09:08 06/18/23 11:00 06/18/23 11:00 06/18/23 11:00 06/18/23 11:00
Cream Maker consulted with Physician
Cream Maker consulted with physician?: Yes
Name of Physician Consulted: Alexa
MDM/Problems Addressed
Differential Diagnosis Includes:
not limited to: Unstable angina
MDM/Problems Addressed:
Patient is a 82-year-old male with past medical history of CABG stents x 10 presented with chest pain today while showering. Patient had taken 1 nitroglycerin on his own and 2 nitroglycerin by EMS and aspirin. Patient is currently pain-free
initially he arrived around 2 out of 10 but now feeling better/pain free. trop x2 neg. no acute elevation on initial ekg repeat ekg viewed by ED attending ?slight st increase. EKG however was reviewed by cardiology
Pt remains cp free in ED but with extens history and patient presenting with same symptoms prior to his previous [facility] will admit. Patient is followed by Dr. Colin Schrader made aware will see his consult. d/c w/ admitting hospitalist.
Chronic conditions affecting care:
previous [facility]/stents /CABG
*Radiology
Radiology exam reviewed: radiology read reviewed
*Pulse Oximetry
Patient hypoxic: no
*EKG
Rate: bradycardiac
Rhythm: sinus
[place]: normal axis
Interval: first degree heart block
Ischemia: non-specific ST changes
*Critical Care Note
Total Time (30-74mins, 75-104mins- exclusive of procedures): Not Applicable
Data Reviewed
Review of Other/Old Records Reveals: Other (Echo 2022 normal LV ventricular size and systolic function no regional wall abnormalities LV ejection fraction is 60-65% stress test from November 2022 shows reversible defect in the apical anterior and
apex segments consistent with ischemia high risk study)
Patient Management
Discussion with other providers: Information Specialist (DR Schrader )
ED Attending Note
-
Portions of this chart may have been created with voice recognition software.� Occasional wrong word or��sound alike� substitutions may have occurred due to the inherent limitations of voice recognition software.
Discharge Plan
Departure
Patient Disposition: Admit
Date of Disposition: 06/18/23
Time of Disposition: 13:15
Admit to: Telemetry
Admit to doctor: hospitalist
Presentation/result/management discussed w/ accepting MD/DO: Hospitalist
Patient with high blood pressure during this ER visit?: Yes
Condition: Fair
Covid-19: Not Applicable
Discharge Problem:
Chest pain
Prescriptions:
No Action
multivitamin Tablet
1 tab PO BID
ascorbic acid (vitamin C) [Vitamin C] 1,000 mg Tablet
1,000 mg PO BID
metoprolol succinate 50 mg tablet extended release 24 hr
50 mg PO BID
cyanocobalamin (vitamin B-12) [Vitamin B-12] 1,000 mcg Tablet
1,000 mcg PO Q48H@0800
clopidogrel 75 mg tablet
75 mg PO DAILY
aspirin 81 mg Tablet,Delayed Release (Dr/Ec)
81 mg PO HS
isosorbide mononitrate 60 mg tablet extended release 24 hr
60 mg PO BID
tamsulosin 0.4 mg capsule
0.8 mg PO HS
pantoprazole 40 mg tablet,delayed release (DR/EC)
40 mg PO DAILY@0200
ramipril 2.5 mg capsule
2.5 mg PO DAILY
finasteride 5 mg tablet
5 mg PO HS
coenzyme Q10 [Co Q-10] 100 mg Capsule
100 mg PO DAILY
rosuvastatin 20 mg tablet
20 mg PO HS
ranolazine 1,000 mg tablet extended release 12 hr
1,000 mg PO BID
psyllium husk [Metamucil] 0.4 gram Capsule
1.2 g PO BIDPRN PRN (Reason: constipation)
aspirin 325 mg Tablet
325 mg PO ONCE
nitroglycerin 0.4 mg Tablet, Sublingual
0.4 mg SUBLINGUAL [id number] PRN (Reason: chest pain)
Patient Comments:
06/18/2023, pt. took one tablet at home and 2 tablets in the ambulance today.
amlodipine 2.5 mg tablet
2.5 mg PO NOON
Referrals:
Dimple Myers DO [Family Provider] -
Interventions
Interventions:
*Risk Screen - Suicide Last Done: 06/18/23 09:12
*General Assessment Last Done: 06/18/23 09:12
*Neglect/Abuse Screening Last Done: 06/18/23 09:12
ED- Cardiac Assessment Last Done: 06/18/23 10:36
Discharge Date and Time
Print Language: SWEDISH
[2023-06-18 09:28] LABS: % Eosinophils 2.4 % (0-6); % Immature Granulocytes 0.7 % (0-0.5); % Lymphocytes 21.8 % (20.5-51.1); % Monocytes 10.8 % (1.7-9.3); % Neutrophils 63.3 % (42.2-75.2); Absolute Eosinophils 0.1 10^3/uL (0-0.7); Absolute Lymphocytes 0.9 10^3/uL (1.2-3.4); Absolute Monocytes 0.4 10^3/uL (0.1-0.6); Absolute Neutrophils 2.6 10^3/uL (1.4-6.5); Hematocrit 40.1 % (39.0-52.0); Hemoglobin 14.2 g/dL (13.0-18.0); Mean Corp Hgb Conc. 35.4 g/dL (33.0-37.0); Mean Corpuscular Volume 98.8 fL (80.0-94.0); Nucleated Red Blood Cells % 0 % (-); Platelet Count 138 10^3/uL (130-400); Red Blood Cell Count 4.06 10^6/uL (4.70-6.10); Red Cell Dist. Width 12.3 % (11.5-14.5); White Blood Cell Count 4.1 10^3/uL (4.8-10.8)
[2023-06-18] MEDS: NSS 500 IV (09:33)
[2023-06-18 09:36] LABS: ALT (SGPT) 25 U/L (0-50); AST (SGOT) 37 U/L (17-59); Albumin 4.4 g/dl (3.5-5.0); Alkaline Phosphatase 99 U/L (38-126); Blood Urea Nitrogen 19 mg/dl (9-20); Calcium 9.6 mg/dl (8.4-10.2); Carbon Dioxide 25 mmol/L (22-30); Chloride 102 mmol/L (98-107); Estimated Creatinine Clearance 52 ml/min; Glucose 147 mg/dl (70-99); Potassium 4.3 mmol/L (3.5-5.1); Sodium 137 mmol/L (135-145); Total Bilirubin 1.1 mg/dl (0.2-1.3); Total Protein 7.1 g/dl (6.3-8.2); eGFR > 60.00
[2023-06-18 09:48] LABS: Troponin I < 0.012 ng/ml
[2023-06-18] MEDS: NITRO-BID 1 INCH TOPICAL (10:36)
[2023-06-18 13:04] LABS: Troponin I < 0.012 ng/ml
--- NOTE | 2023-06-18 15:09 | CON.CAR ---
Addendum entered and electronically signed by Michael Schrader MD 06/18/23 15:48:
I saw and examined the patient.
The ROAD [employer] or PA's note was reviewed and I agree with the note.
Comment: General: Well developed, well nourished in NAD.
Neck: Supple, no JVD, HJR, carotids +2 B/L, no bruits bilaterally.
Heart: Non displaced PMI, RRR, no murmurs, No S3, S4, no rubs.
Lungs: Clear to auscultation bilaterally, no wheeze, rhonchi, rubs bilaterally,
normal expiratory phase.
Extremities: No clubbing, cyanosis or edema bilaterally.
Neuro: Grossly nonfocal, awake, alert and oriented x3.
Edward has a history bypass surgery stents falls. He presents with chest discomfort. It occurred sitting on the side of his bed. He took a nitroglycerin and discomfort went away within 10 minutes. He subsequently had nausea and felt sweaty. He
came to the ER. Cardiology was consulted for persistent chest pain. Troponins have been serially undetectable. Unclear whether nitroglycerin made discomfort better. Will increase Imdur to 120 mg p.o. twice daily but suggest workup for GI
etiology. His stomach was noted to be bloated as well. Stable cardiology status for discharge per the ER staff to evaluate GI symptoms further.
Original Note:
Consultation
Consultation Request
Date/Time Consultation Requested: 06/18/23
Date/Time Consultation Performed: 06/18/23
Requesting Provider: LISA Fine in ER
Performing Provider: Dr. Schrader
Reason for Consultation: Chest pain
Medical History
-
History of Present Illness:
Patient came to [facility] today with chest pain and cardiology is now consulted. Patient says that he woke up earlier than usual today because he had a doctor's appointment. When he came home he tried to get a shower and started with chest pain that was
substernal and he felt weak and then sat down. He got out of the shower and took a NTG SL x1 and pain lessened a bit, but persisted. He started to feel sick to his stomach and wretched to vomit, but did not actually vomit. Then he was diaphoretic.
He called 911 without ongoing pain. Overall pain felt similar to previous CO pain. Paramedics gave him 2 more NTG SL and pain again lessened. Paramedics told patient that his abdomen was bloated, but he didn't notice initially. In the ER he was
started on Nitro-paste and no recurrence of pain. He says that he has not eaten at all today and his abdomen is still bloated. He now says that he does not think his chest pain was cardiac and he is worried it is GI because he saw a polio specialist
in [place] last week and was told that his swallowing issues might be due to polio. He has had trouble swallowing pills for months, now using yogurt and honey to swallow pills, but some still getting stuck.
PMH:
CAD
s/p CABG at [facility] with PRITCHARD to LAD and SVG to OM 1989
s/p LAD stent in at [facility] 2008
s/p LAD stent at [facility] 04/2013
s/p SVG�OM stent at [facility] 04/2016
s/p laser atherectomy of proximal LAD with PCI x 2 at [facility] 06/2017
s/p LAD stent at [facility] 02/2020
History of polio at age 2, with postpolio syndrome LLE
History of falls, with 2 recently 03/28/23, 04/05/23
DM2, diet controlled
Gout
GERD
BPH
Past Medical History
Past Medical History: Other (in HPI)
Past Surgical History: Cardiac (CABG and PCI )
Social History
Tobacco: Non-Smoker
Alcohol: Occasional (once a month)
Drug: None
Personal:
Living: With Family
Family History
Family History: CAD
Allergies / Home Medications
Allergy/AdvReac Type Severity Reaction Status Date / Time
ticlopidine [From Ticlid] Allergy Rash Verified 06/18/23 09:08
�Medication �Instructions �Recorded �Confirmed �Type
ascorbic acid (vitamin C) 1,000 mg 1,000 mg PO BID Supplement 04/07/23 06/18/23 History
tablet (Vitamin C)
aspirin 81 mg tablet,delayed 81 mg PO HS Blood Clot 04/07/23 06/18/23 History
release Prevention/Tx
clopidogrel 75 mg tablet 75 mg PO DAILY Blood Clot 04/07/23 06/18/23 History
Prevention/Tx
coenzyme Q10 100 mg capsule (Co 100 mg PO DAILY Supplement 04/07/23 06/18/23 History
Q-10)
cyanocobalamin (vitamin B-12) 1,000 mcg PO Q48H@0800 Supplement 04/07/23 06/18/23 History
1,000 mcg tablet (Vitamin B-12)
finasteride 5 mg tablet 5 mg PO HS Urinary Issue 04/07/23 06/18/23 History
isosorbide mononitrate 60 mg 60 mg PO BID Heart 04/07/23 06/18/23 History
tablet,extended release 24 hr Disease/Condition
metoprolol succinate 50 mg 50 mg PO BID Blood Pressure 04/07/23 06/18/23 History
tablet,extended release 24 hr
multivitamin 1 tab PO BID Supplement 04/07/23 06/18/23 History
pantoprazole 40 mg tablet,delayed 40 mg PO DAILY@0200 04/07/23 06/18/23 History
release Gastrointestinal Issue
psyllium husk 0.4 gram capsule 1.2 g PO BIDPRN PRN constipation 04/07/23 06/18/23 History
(Metamucil)
ramipril 2.5 mg capsule 2.5 mg PO DAILY Blood Pressure 04/07/23 06/18/23 History
ranolazine 1,000 mg 1,000 mg PO BID Heart Failure 04/07/23 06/18/23 History
tablet,extended release,12 hr
rosuvastatin 20 mg tablet 20 mg PO HS High Cholesterol 04/07/23 06/18/23 History
tamsulosin 0.4 mg capsule 0.8 mg PO HS Urinary Issue 04/07/23 06/18/23 History
amlodipine 2.5 mg tablet 2.5 mg PO NOON Blood Pressure 06/18/23 06/18/23 History
aspirin 325 mg tablet 325 mg PO ONCE Blood Clot 06/18/23 06/18/23 History
Prevention/Tx
nitroglycerin 0.4 mg sublingual 0.4 mg sublingual [id number] PRN 06/18/23 06/18/23 History
tablet chest pain
Review of Systems
-
History Source: Patient and Family ( sitting bedside)
All other systems: Negative unless noted
Physical Exam
Vital Signs
Temp Pulse Resp BP Pulse Ox
97.4 F 64 18 157/73 98
06/18/23 09:08 06/18/23 14:01 06/18/23 14:01 06/18/23 14:01 06/18/23 14:01
GEN: NAD, AAOx3
HEENT: EOMI, MMM, wearing glasses
LUNGS: CTA B/L, no wheezes or rales
CV: Reg, S1/S2, no murmur
ABD: Mildly distended and tender RLQ and LLQ. Soft, BS+.
EXT: No clubbing, cyanosis, lesions or edema B/L
NEURO: Gross non-focal
SKIN: Warm, dry and pink. No rash
Lab Results
06/18/23 09:17
06/18/23 09:17
Troponin I < 0.012 ng/ml 06/18/23 12:30
Impression / Plan
-
PCP: Dr. Myers
Primary Fitness Assistant: Dr. Shaw
Impression:
Chest pain
Abdominal pain and bloating
CAD
s/p CABG at [facility] with PRITCHARD to LAD and SVG to OM 1989
s/p LAD stent in at [facility] 2008
s/p LAD stent at [facility] 04/2013
s/p SVG�OM stent at [facility] 04/2016
s/p laser atherectomy of proximal LAD with PCI x 2 at [facility] 06/2017
s/p LAD stent at [facility] 02/2020
History of polio at age 2, with postpolio syndrome LLE
History of falls, with 2 recently 03/28/23, 04/05/23
DM2, diet controlled
Gout
GERD
BPH
Lexiscan mibi 11/13/22: Medium area of mildly decreased uptake that is reversible and apical anterior wall and apex, small area of mildly decreased uptake that is fixed in basal and mid inferior lateral wall, EF 65%
Echo 11/2023: EF 60 to 65%, mild concentric LVH, mild MR, mild with peak/mean gradients 31/14 mmHg, mild AI, mild TR, PAP 41 mmHg
Plan:
-Patient came to [facility] today with chest pain and cardiology is now consulted. Patient says that he woke up earlier than usual today because he had a doctor's appointment. When he came home he tried to get a shower and started with chest pain that was
substernal and he felt weak and then sat down. He got out of the shower and took a NTG SL x1 and pain lessened a bit, but persisted. He started to feel sick to his stomach and wretched to vomit, but did not actually vomit. Then he was diaphoretic.
He called 911 without ongoing pain. Overall pain felt similar to previous CO pain. Paramedics gave him 2 more NTG SL and pain again lessened. Paramedics told patient that his abdomen was bloated, but he didn't notice initially. In the ER he was
started on Nitro-paste and no recurrence of pain. He says that he has not eaten at all today and his abdomen is still bloated. He now says that he does not think his chest pain was cardiac and he is worried it is GI because he saw a polio specialist
in [place] last week and was told that his swallowing issues might be due to polio. He has had trouble swallowing pills for months, now using yogurt and honey to swallow pills, but some still getting stuck.
-Troponin serially undetectable.
-ECG reviewed by me without acute ischemic change
-Chest pain initially felt like his typical angina, but now he feels like his symptoms might be GI. Talked with ROAD SUPER[employer] in ER and plan is to re-evaluate patient and see if any abdominal imaging is needed.
-Will increase Imdur ER to 120 mg BID
-BP 157/73 in ER now because he did not take his morning meds.
-Cont amlodipine 2.5 mg daily, Toprol XL 50 mg BID, ramipril 2.5 mg daily, aspirin and Plavix.
-Patient is scheduled to see Dr. Shaw next week.
--- NOTE | 2023-06-18 15:49 | ED.GENMED ---
History of Present Illness
General
Chief Complaint: Chest Pain
Time Seen by Provider: 06/18/23 09:07
Travel History
Have you had any contact with someone who has COVID-19?: No
Do you have any symptoms of coronavirus? Fever > 100 degrees, chills, cough, shortness of breath, sore throat, loss of taste or smell, muscle aches, or headache?: No
Past History
Past History
ED Past Medical History: CAD, GERD, Hypercholesterolemia, NIDDM and Other (Polio)
ED Past Surgical History: Cardiac and Orthopedic
Social History
Personal:
Course
Orders/Labs/Results
Orders:
Orders
06/18/23 09:07
ECG [Electrocardiogram (*1)] Urgent
Reason for Study: Chest Pain
EKG- Treatment ONCE
06/18/23 09:17
Complete Blood Count/With Diff Urgent
Comprehensive Metabolic Panel Urgent
Troponin I Urgent
06/18/23 09:33
0.9% Sodium Chloride 500 ml [Nss] 500 ml IV BOLUS
06/18/23 09:34
0.9% Sodium Chloride 500 ml [Nss] 500 ml IV BOLUS
06/18/23 10:23
Nitroglycerin Ointment [Nitro-Bid] 1 inch TOPICAL NOW STA
06/18/23 11:48
Chest [CR Chest - 2 Views ] Urgent
Comment:
Reason For Exam: cp
06/18/23 12:09
Electrocardiogram (*1) Stat
Reason for Study: Other
Other Reason for Exam: chest pain
EKG- Treatment ONCE
06/18/23 12:30
Troponin I Urgent
06/18/23 15:48
CT Abd/pelvis W Iv Cont Urgent
Comment:
Reason For Exam: abd pain
Abnormal Lab Results
06/18/23
09:17
WBC 4.1 L 10^3/uL
(4.8-10.8)
RBC 4.06 L 10^6/uL
(4.70-6.10)
MCV 98.8 H fL
(80.0-94.0)
MCH 35.0 H pg
(27.0-31.0)
Absolute Lymphs (auto) 0.9 L 10^3/uL
(1.2-3.4)
Immature Gran % 0.7 H %
(0-0.5)
Monocytes % 10.8 H %
(1.7-9.3)
Glucose 147 H mg/dl
(70-99)
06/18/23 09:17
06/18/23 09:17
Vital Signs
Initial and Last Documented VS:
Initial Vital Signs
Temp Pulse Resp BP Pulse Ox
97.4 F 68 16 113/70 97
06/18/23 09:08 06/18/23 09:08 06/18/23 09:08 06/18/23 09:08 06/18/23 09:08
Last Documented Vital Signs
Temp Pulse Resp BP Pulse Ox
97.4 F 64 18 157/73 98
06/18/23 09:08 06/18/23 14:01 06/18/23 14:01 06/18/23 14:01 06/18/23 14:01
ED Attending Note
-
Portions of this chart may have been created with voice recognition software.� Occasional wrong word or��sound alike� substitutions may have occurred due to the inherent limitations of voice recognition software.
Discharge Plan
Departure
Patient Disposition: Admit
Date of Disposition: 06/18/23
Time of Disposition: 13:15
Admit to: Telemetry
Admit to doctor: hospitalist
Presentation/result/management discussed w/ accepting MD/DO: Hospitalist
Patient with high blood pressure during this ER visit?: Yes
Condition: Fair
Covid-19: Not Applicable
Discharge Problem:
Chest pain
Prescriptions:
No Action
multivitamin Tablet
1 tab PO BID
ascorbic acid (vitamin C) [Vitamin C] 1,000 mg Tablet
1,000 mg PO BID
metoprolol succinate 50 mg tablet extended release 24 hr
50 mg PO BID
cyanocobalamin (vitamin B-12) [Vitamin B-12] 1,000 mcg Tablet
1,000 mcg PO Q48H@0800
clopidogrel 75 mg tablet
75 mg PO DAILY
aspirin 81 mg Tablet,Delayed Release (Dr/Ec)
81 mg PO HS
isosorbide mononitrate 60 mg tablet extended release 24 hr
60 mg PO BID
tamsulosin 0.4 mg capsule
0.8 mg PO HS
pantoprazole 40 mg tablet,delayed release (DR/EC)
40 mg PO DAILY@0200
ramipril 2.5 mg capsule
2.5 mg PO DAILY
finasteride 5 mg tablet
5 mg PO HS
coenzyme Q10 [Co Q-10] 100 mg Capsule
100 mg PO DAILY
rosuvastatin 20 mg tablet
20 mg PO HS
ranolazine 1,000 mg tablet extended release 12 hr
1,000 mg PO BID
psyllium husk [Metamucil] 0.4 gram Capsule
1.2 g PO BIDPRN PRN (Reason: constipation)
aspirin 325 mg Tablet
325 mg PO ONCE
nitroglycerin 0.4 mg Tablet, Sublingual
0.4 mg SUBLINGUAL [id number] PRN (Reason: chest pain)
Patient Comments:
06/18/2023, pt. took one tablet at home and 2 tablets in the ambulance today.
amlodipine 2.5 mg tablet
2.5 mg PO NOON
Referrals:
Portuguese,Dimple Jazmin, DO [Family Provider] -
Interventions
Interventions:
*Risk Screen - Suicide Last Done: 06/18/23 09:12
*General Assessment Last Done: 06/18/23 09:12
*Neglect/Abuse Screening Last Done: 06/18/23 09:12
ED- Cardiac Assessment Last Done: 06/18/23 10:36
Discharge Date and Time
Print Language: JAPANESE
--- NOTE | 2023-06-18 17:01 | ED.GENMED ---
History of Present Illness
General
Chief Complaint: Chest Pain
Time Seen by Provider: 06/18/23 09:07
Travel History
Have you had any contact with someone who has COVID-19?: No
Do you have any symptoms of coronavirus? Fever > 100 degrees, chills, cough, shortness of breath, sore throat, loss of taste or smell, muscle aches, or headache?: No
Past History
Past History
ED Past Medical History: CAD, GERD, Hypercholesterolemia, NIDDM and Other (Polio)
ED Past Surgical History: Cardiac and Orthopedic
Social History
Personal:
Course
Orders/Labs/Results
Orders:
Orders
06/18/23 09:07
ECG [Electrocardiogram (*1)] Urgent
Reason for Study: Chest Pain
EKG- Treatment ONCE
06/18/23 09:17
Complete Blood Count/With Diff Urgent
Comprehensive Metabolic Panel Urgent
Troponin I Urgent
06/18/23 09:33
0.9% Sodium Chloride 500 ml [Nss] 500 ml IV BOLUS
06/18/23 09:34
0.9% Sodium Chloride 500 ml [Nss] 500 ml IV BOLUS
06/18/23 10:23
Nitroglycerin Ointment [Nitro-Bid] 1 inch TOPICAL NOW STA
06/18/23 11:48
Chest [CR Chest - 2 Views ] Urgent
Comment:
Reason For Exam: cp
06/18/23 12:09
Electrocardiogram (*1) Stat
Reason for Study: Other
Other Reason for Exam: chest pain
EKG- Treatment ONCE
06/18/23 12:30
Troponin I Urgent
06/18/23 15:48
CT Abd/pelvis W Iv Cont Urgent
Comment:
Reason For Exam: abd pain
Abnormal Lab Results
06/18/23
09:17
WBC 4.1 L 10^3/uL
(4.8-10.8)
RBC 4.06 L 10^6/uL
(4.70-6.10)
MCV 98.8 H fL
(80.0-94.0)
MCH 35.0 H pg
(27.0-31.0)
Absolute Lymphs (auto) 0.9 L 10^3/uL
(1.2-3.4)
Immature Gran % 0.7 H %
(0-0.5)
Monocytes % 10.8 H %
(1.7-9.3)
Glucose 147 H mg/dl
(70-99)
06/18/23 09:17
06/18/23 09:17
Vital Signs
Initial and Last Documented VS:
Initial Vital Signs
Temp Pulse Resp BP Pulse Ox
97.4 F 68 16 113/70 97
06/18/23 09:08 06/18/23 09:08 06/18/23 09:08 06/18/23 09:08 06/18/23 09:08
Last Documented Vital Signs
Temp Pulse Resp BP Pulse Ox
97.4 F 67 23 120/55 98
06/18/23 09:08 06/18/23 16:00 06/18/23 16:00 06/18/23 16:00 06/18/23 14:01
ED Attending Note
-
Portions of this chart may have been created with voice recognition software.� Occasional wrong word or��sound alike� substitutions may have occurred due to the inherent limitations of voice recognition software.
Discharge Plan
Departure
Patient Disposition: Home (Routine Discharge)
Date of Disposition: 06/18/23
Time of Disposition: 17:06
Admit to doctor: hospitalist
Patient with high blood pressure during this ER visit?: Yes
Condition: Fair
Covid-19: Not Applicable
Discharge Problem:
Chest pain, Acute constipation
Instructions: Constipation, Adult ED, Chest Pain DCA Follow Up
Prescriptions:
New
isosorbide mononitrate 120 mg tablet extended release 24 hr
120 mg PO BID Qty: 60 11RF
Discontinued
isosorbide mononitrate 60 mg tablet extended release 24 hr
60 mg PO BID
No Action
multivitamin Tablet
1 tab PO BID
ascorbic acid (vitamin C) [Vitamin C] 1,000 mg Tablet
1,000 mg PO BID
metoprolol succinate 50 mg tablet extended release 24 hr
50 mg PO BID
cyanocobalamin (vitamin B-12) [Vitamin B-12] 1,000 mcg Tablet
1,000 mcg PO Q48H@0800
clopidogrel 75 mg tablet
75 mg PO DAILY
aspirin 81 mg Tablet,Delayed Release (Dr/Ec)
81 mg PO HS
tamsulosin 0.4 mg capsule
0.8 mg PO HS
pantoprazole 40 mg tablet,delayed release (DR/EC)
40 mg PO DAILY@0200
ramipril 2.5 mg capsule
2.5 mg PO DAILY
finasteride 5 mg tablet
5 mg PO HS
coenzyme Q10 [Co Q-10] 100 mg Capsule
100 mg PO DAILY
rosuvastatin 20 mg tablet
20 mg PO HS
ranolazine 1,000 mg tablet extended release 12 hr
1,000 mg PO BID
psyllium husk [Metamucil] 0.4 gram Capsule
1.2 g PO BIDPRN PRN (Reason: constipation)
aspirin 325 mg Tablet
325 mg PO ONCE
nitroglycerin 0.4 mg Tablet, Sublingual
0.4 mg SUBLINGUAL [id number] PRN (Reason: chest pain)
Patient Comments:
06/18/2023, pt. took one tablet at home and 2 tablets in the ambulance today.
amlodipine 2.5 mg tablet
2.5 mg PO NOON
Referrals:
Valente Shaw MD [Active] - 06/26/23 2:40 pm
Dimple Myers DO [Family Provider] - 06/24/23 11:15 am
Activity Restrictions/Additional Instructions:
As discussed your CAT scan does show constipation. You may take MiraLAX as directed daily. Also increase your Imdur as recommended by cardiology and follow-up with your dry roller Dr. Shaw in next week. Return if any worsening of symptoms of
increased chest pain abdominal pain nausea vomiting fever chills.
Interventions
Interventions:
*Risk Screen - Suicide Last Done: 06/18/23 09:12
*General Assessment Last Done: 06/18/23 09:12
*Neglect/Abuse Screening Last Done: 06/18/23 09:12
ED- Fall Risk Assessment Last Done: 06/18/23 17:41
*ED COVID-19 Vaccine History Last Done: 06/18/23 17:41
*Nursing Disposition Last Done: 06/18/23 17:41
ED- Cardiac Assessment Last Done: 06/18/23 10:36
Discharge Date and Time
Discharge Date/Time: 06/18/23 17:43
Print Language: BELARUSIAN
== END 2023-06-18 17:43 | disposition home or self-care (01) ==
LOC: EMR 09:05
PROVIDERS: Nurse Practitioner; EMERGENCY PHYSICIAN Emergency Medicine; FAMILY PHYSICIAN Family Medicine; OTHER PHYSICIAN Internal Medicine Cardiovascular Disease
DX: R07.89 Other chest pain (principal); R03.0 Elevated blood-pressure reading, without diagnosis of hypertension; I25.2 Old myocardial infarction; I25.10 Atherosclerotic heart disease of native coronary artery without angina pectoris; Z95.1 Presence of aortocoronary bypass graft; Z95.5 Presence of coronary angioplasty implant and graft
CPT/HCPCS: 99285; 96360; 71046; 74177; 80053; 84484; 85025; 93005; Q9967

== ENCOUNTER → 2023-07-04 09:50 | Outpatient (REF) | payer OTHER, SELFPAY | LOC: RST 09:50 | PROVIDERS: ATTENDING PHYSICIAN Family Medicine | DX: R13.10 Dysphagia, unspecified (principal) | CPT/HCPCS: 74221; 74230; 92611 ==

== ENCOUNTER → 2023-10-14 12:46 | Outpatient (REF) | payer OTHER, SELFPAY | LOC: RAD 12:46 | PROVIDERS: ATTENDING PHYSICIAN Physician Assistant; FAMILY PHYSICIAN Family Medicine; REFERRING PHYSICIAN Internal Medicine Interventional Cardiology | DX: I65.23 Occlusion and stenosis of bilateral carotid arteries (principal) | CPT/HCPCS: 93880 ==

== ENCOUNTER → 2023-12-22 12:13 | Outpatient (REF) | payer OTHER, SELFPAY | LOC: HWRAD 12:13 | PROVIDERS: ATTENDING PHYSICIAN Specialist; FAMILY PHYSICIAN Family Medicine | DX: D29.20 Benign neoplasm of unspecified testis (principal) | CPT/HCPCS: 76870; 93976 ==

== ENCOUNTER → 2024-07-15 11:25 | Outpatient (REF) | payer OTHER, SELFPAY | LOC: RAD 11:25 | PROVIDERS: ATTENDING PHYSICIAN Physician Assistant Medical; FAMILY PHYSICIAN Family Medicine | DX: R05.9 Cough, unspecified (principal) | CPT/HCPCS: 71046 ==

== ENCOUNTER 2024-09-01 10:58 | Emergency (ER) | payer OTHER, SELFPAY ==
[2024-09-01 11:01] VITALS: BP 136/82
[2024-09-01 11:05] VITALS: BP 136/82
[2024-09-01 11:06] VITALS: BMI 26.1
[2024-09-01 11:26] LABS: Hematocrit 38.6 % (39.0-52.0); Hemoglobin 13.8 g/dL (13.0-18.0); Mean Corp Hgb Conc. 35.8 g/dL (33.0-37.0); Mean Corpuscular Volume 98.2 fL (80.0-94.0); Nucleated Red Blood Cells % 0 % (-); Platelet Count 141 10^3/uL (130-400); Red Cell Dist. Width 12.7 % (11.5-14.5)
[2024-09-01 11:39] LABS: ALT (SGPT) 22 U/L (0-50); AST (SGOT) 27 U/L (17-59); Albumin 4.3 g/dl (3.5-5.0); Alkaline Phosphatase 82 U/L (38-126); Blood Urea Nitrogen 18 mg/dl (9-20); Calcium 9.3 mg/dl (8.4-10.2); Carbon Dioxide 26 mmol/L (22-30); Chloride 105 mmol/L (98-107); Estimated Creatinine Clearance 58 ml/min; Glucose 127 mg/dl (70-99); Magnesium 2.0 mg/dl (1.6-2.3); Potassium 4.8 mmol/L (3.5-5.1); Sodium 138 mmol/L (135-145); Total Protein 6.9 g/dl (6.3-8.2); eGFR > 60.00
[2024-09-01 11:52] LABS: Troponin I < 0.012 ng/ml
[2024-09-01 12:00] VITALS: BP 132/68
[2024-09-01 13:00] VITALS: BP 140/69
[2024-09-01 14:00] VITALS: BP 133/68
[2024-09-01 14:38] LABS: Troponin I < 0.012 ng/ml
--- NOTE | 2024-09-01 16:22 | ED.GENMED ---
History of Present Illness
General
Chief Complaint: Chest Pain
Source: patient
Time Seen by Provider: 09/01/24 11:01
History of Present Illness
History of Present Illness:
Note:
CHIEF COMPLAINT(S)
Chest pain.
HISTORY OF PRESENT ILLNESS
The patient is an 83-year-old male with a history of coronary artery bypass surgery who presents with chest pain that began around 9:00 AM. He describes the pain as similar to a previous cardiac episode. Prior to arrival, he took two doses of
nitroglycerin at home along with a full dose of 325 mg aspirin. Despite taking a total of five doses of nitroglycerin, his pain remains at six out of ten in severity. He also reports a sensation of a heat flash originating from his abdomen. The
patient is under medical treatment for reflux and distinguishes this current pain from previous experiences with reflux.
The patient has a known history of aortic stenosis and recalls being told he might have been born with a heart murmur. Upon examination, a prominent heart murmur was noted.
INTERVENTIONS
Prior to arrival, the patient self-administered aspirin (325 mg) and nitroglycerin. EMS provided three additional doses of nitroglycerin, totaling five doses taken by the patient.
CHRONIC MEDICAL CONDITIONS SIGNIFICANTLY AFFECTING CARE
The patient has coronary artery disease and aortic stenosis.
PHYSICAL EXAM
General: Alert, no acute distress.
Skin: Extremities are warm and well perfused.
Cardiovascular: Notable heart murmur, potentially consistent with aortic stenosis.
Respiratory: Lungs are clear with non-labored respirations.
Gastrointestinal: Reports a sensation lana to a heat flash from abdomen up.
PROBLEM LIST
Acute:
- Chest pain of unclear etiology, unresolved with nitroglycerin.
- Potential exacerbation of aortic stenosis.
Chronic:
- Coronary artery disease.
- Aortic stenosis.
PLAN
- Continue monitoring of chest pain and heart function.
- Obtain an EKG and repeat as necessary.
- Perform blood work, including cardiac enzymes.
- Review prior cardiac studies, including potential stress test, catheterization, or echocardiogram.
- Consult cardiology as needed.
- Avoid further nitroglycerin if symptoms do not improve, and consider alternative pain management strategies.
DIFFERENTIAL DIAGNOSIS
The Differential Diagnosis includes, in no particular order and is not limited to:
1. Myocardial infarction
2. Unstable angina
3. Aortic stenosis exacerbation
4. Gastroesophageal reflux disease
5. Aortic dissection
6. Pulmonary embolism
7. Pericarditis
8. Anxiety or panic disorder
9. Costochondritis
10. Heart failure exacerbation
EKG
My independent EKG interpretation is:
- Rhythm: Normal sinus rhythm
- Heart Rate: Not specified
- CO Interval: First-degree AV block
- QRS Duration: Normal
- QT Interval: Not specified
- [place]: Normal
- ST Segment: No changes
- T Waves: No inversions
- Additional Findings: None
Disposition:
SUMMARY OF ENCOUNTER
The patient, an 83-year-old male with a history of coronary artery disease and aortic stenosis, presented to the emergency department with chest pain. Given his history of coronary artery bypass surgery and reported chest pain similar to a previous
cardiac event, there was a concern for acute coronary syndrome (ACS). He had taken five doses of nitroglycerin without significant relief prior to arrival. In the emergency department, two EKGs were conducted and found to be unremarkable. Troponin
levels were checked twice, three hours apart, and were both negative. CBC and chemistry panels were normal. A chest x-ray was also conducted and was normal. Old records, including an echocardiogram from November 2022 revealing aortic stenosis, were
reviewed. The patients chest pain eventually resolved during his stay, and he felt much better.
DISPOSITION
Discharge.
ASSESSMENT
The patients chest pain likely resulted from non-cardiac causes given the normal cardiac biomarkers and resolution of symptoms. However, given his history and the need for ongoing surveillance, he was advised to have urgent outpatient follow-up.
PLAN
- Discharge the patient with instructions to seek urgent follow-up via the chest pain hotline.
- Instruct the patient to return immediately if there is any progression of symptoms or call 911 in case of recurrent chest pain.
INDEPENDENT REVIEW OF LABS AND INTERPRETATION OF TESTS
- My independent review of CBC is normal.
- My independent review of chemistry panel is normal.
- My independent review of troponin levels is negative times two, three hours apart.
- My independent review of the chest x-ray is normal.
- My independent EKG interpretation is normal sinus rhythm with first-degree AV block, no ST changes, or T wave inversions.
MEDICATION RECONCILIATION
- Nitroglycerin, five doses self-administered by the patient prior to emergency department arrival.
- Aspirin 325 mg self-administered by the patient prior to emergency department arrival.
MEDICAL DECISION MAKING
- Chronic conditions affecting care include coronary artery disease and aortic stenosis. Differential diagnosis considered: myocardial infarction, unstable angina, aortic stenosis exacerbation, gastroesophageal reflux disease, aortic dissection,
pulmonary embolism, pericarditis, anxiety or panic disorder, costochondritis, heart failure exacerbation.
- Data:
- Category 1: Non-emergency department records reviewed, including an echocardiogram from November 2022 showing aortic stenosis.
- Category 2: My independent interpretation of two EKGs conducted in the emergency department is unremarkable.
-Risk: Consideration of Admission/Observation: Escalation of care including admission/observation was considered given the complexity and risk of the patients presenting complaint, exam findings, and/or their underlying comorbidities. However,
ultimately I feel the patient is safe for outpatient management with close follow up. Reasoning: Work-up reassuring, does not reveal any acute life/organ-threatening processes, patients symptoms well controlled upon reevaluation, reexamination is
reassuring, patient agreeable with discharge, reliable for follow-up.
DIAGNOSIS
- Chest pain, unspecified (R07.9)
- Aortic stenosis (I35.0)
- Coronary artery disease, unspecified (I25.10)
Past History
Past History
ED Past Medical History: CAD, GERD, Hypercholesterolemia, NIDDM and Other (Polio)
ED Past Surgical History: Cardiac and Orthopedic
Social History
Personal:
Phy Exam
Physical Exam
Physical Exam:
.
Scores
Heart Score for Chest Pain Patients
STEMI patient?: No
History: Slightly or Non-Suspicious
ECG: Normal
Age: >/= 65 years
Risk Factors: >/= 3 Risk Factors or History of CAD
Troponin: </= Normal Limit
Heart Score for Chest Pain Patients: 4
Heart Score Risk: 20.3% MACE over next 6 weeks
Course
Orders/Labs/Results
Orders:
Orders
09/01/24 11:00
EKG [Electrocardiogram (*1)] Urgent
Reason for Study: Chest Pain
EKG- Treatment ONCE
09/01/24 11:07
Cardiac Monitoring- Treatment ONCE
EKG- Treatment ONCE
09/01/24 11:17
Complete Blood Count/With Diff Urgent
Comprehensive Metabolic Panel Urgent
Magnesium Urgent
Troponin I Urgent
09/01/24 11:25
Electrocardiogram (*1) Stat
Reason for Study: Other
Other Reason for Exam: chest pain
09/01/24 13:08
CR Chest - 2 Views Urgent
Comment:
Reason For Exam: cp
09/01/24 14:07
Troponin I Urgent
Abnormal Lab Results
09/01/24
11:17
RBC 3.93 L 10^6/uL
(4.70-6.10)
Hct 38.6 L %
(39.0-52.0)
MCV 98.2 H fL
(80.0-94.0)
MCH 35.1 H pg
(27.0-31.0)
Absolute Lymphs (auto) 0.8 L 10^3/uL
(1.2-3.4)
Lymphocytes % 17.0 L %
(20.5-51.1)
Monocytes % 9.7 H %
(1.7-9.3)
Glucose 127 H mg/dl
(70-99)
09/01/24 11:17
09/01/24 11:17
Vital Signs
Initial and Last Documented VS:
Initial Vital Signs
Temp Pulse Resp BP Pulse Ox
97.0 F 73 18 136/82 98
09/01/24 11:01 09/01/24 11:01 09/01/24 11:01 09/01/24 11:01 09/01/24 11:01
Last Documented Vital Signs
Temp Pulse Resp BP Pulse Ox
97.0 F 66 9 133/68 99
09/01/24 11:01 09/01/24 15:03 09/01/24 15:03 09/01/24 14:00 09/01/24 14:30
*Pulse Oximetry
SaO2: 99
Oxygen Mode of Delivery: Room air
Patient hypoxic: no
*Critical Care Note
Total Time (30-74mins, 75-104mins- exclusive of procedures): Not Applicable
ED Attending Note
-
Portions of this chart may have been created with voice recognition software.� Occasional wrong word or��sound alike� substitutions may have occurred due to the inherent limitations of voice recognition software.
Discharge Plan
Departure
Patient Disposition: Home (Routine Discharge)
Date of Disposition: 09/01/24
Time of Disposition: 16:28
Patient with high blood pressure during this ER visit?: No
Discharge Problem:
Chest discomfort
Instructions: Chest Pain [facility] Follow Up
Prescriptions:
No Action
multivitamin Tablet
1 tab PO BID
ascorbic acid (vitamin C) [Vitamin C] 1,000 mg Tablet
1,000 mg PO BID
metoprolol succinate 50 mg tablet extended release 24 hr
50 mg PO BID
cyanocobalamin (vitamin B-12) [Vitamin B-12] 1,000 mcg Tablet
1,000 mcg PO Q48H@0800
clopidogrel 75 mg tablet
75 mg PO DAILY
aspirin 81 mg Tablet,Delayed Release (Dr/Ec)
81 mg PO HS
tamsulosin 0.4 mg capsule
0.8 mg PO HS
pantoprazole 40 mg tablet,delayed release (DR/EC)
40 mg PO DAILY@0200
ramipril 2.5 mg capsule
2.5 mg PO DAILY
finasteride 5 mg tablet
5 mg PO HS
coenzyme Q10 [Co Q-10] 100 mg Capsule
100 mg PO DAILY
rosuvastatin 20 mg tablet
20 mg PO HS
ranolazine 1,000 mg tablet extended release 12 hr
1,000 mg PO BID
psyllium husk [Metamucil] 0.4 gram Capsule
1.2 g PO BIDPRN PRN (Reason: constipation)
aspirin 325 mg Tablet
325 mg PO ONCE
nitroglycerin 0.4 mg Tablet, Sublingual
0.4 mg SUBLINGUAL [id number] PRN (Reason: chest pain)
Patient Comments:
06/18/2023, pt. took one tablet at home and 2 tablets in the ambulance today.
amlodipine 2.5 mg tablet
2.5 mg PO NOON
isosorbide mononitrate 120 mg tablet extended release 24 hr
120 mg PO BID Qty: 60 11RF
Referrals:
Dimple Myers DO [Family Provider, Family Practice]
Activity Restrictions/Additional Instructions:
Please take 81 mg of aspirin a day. Please avoid strenuous or exertional activity until cleared by cardiology. Please see cardiology in the next 48 hours for reevaluation. Return immediately for worsening pain, shortness breath, palpitations,
sweating, nausea, weakness of any kind, numbness, tingling or any other concerns.
Cardiology has been notified and a follow up appointment has been requested. Someone will call you on the next business day to schedule a follow up appointment.
Interventions
Interventions:
ED- Cardiac Assessment Last Done: 09/01/24 11:30
Discharge Date and Time
Print Language: MICRONESIAN
[2024-09-01 16:27] VITALS: BP 151/71
== END 2024-09-01 17:08 | disposition home or self-care (01) ==
LOC: EMR 10:58
PROVIDERS: EMERGENCY PHYSICIAN Emergency Medicine; FAMILY PHYSICIAN Family Medicine
DX: R07.89 Other chest pain (principal); I44.0 Atrioventricular block, first degree; I25.10 Atherosclerotic heart disease of native coronary artery without angina pectoris; E11.9 Type 2 diabetes mellitus without complications; E78.00 Pure hypercholesterolemia, unspecified; K21.9 Gastro-esophageal reflux disease without esophagitis; I35.0 Nonrheumatic aortic (valve) stenosis; Z95.1 Presence of aortocoronary bypass graft
CPT/HCPCS: 99285; 71046; 80053; 83735; 84484; 85025; 93005

== ENCOUNTER → 2024-10-18 13:16 | Outpatient (REF) | payer OTHER, SELFPAY | LOC: DHVS 13:16 | PROVIDERS: ATTENDING PHYSICIAN Surgery Vascular Surgery; FAMILY PHYSICIAN Family Medicine | DX: I65.23 Occlusion and stenosis of bilateral carotid arteries (principal) | CPT/HCPCS: 93880 ==

== ENCOUNTER → 2024-10-21 12:58 | Outpatient (REF) | payer OTHER, SELFPAY | LOC: RCS 12:58 | PROVIDERS: ATTENDING PHYSICIAN Internal Medicine Interventional Cardiology; FAMILY PHYSICIAN Family Medicine | DX: I35.0 Nonrheumatic aortic (valve) stenosis (principal) | CPT/HCPCS: 93306 ==